=== PATIENT | male | born 1935 | race Caucasian/White ===

== ENCOUNTER 2016-11-27 22:55 | Emergency (ER) | payer MEDICARE, OTHER ==
[2016-11-27 23:48] LABS: CREATININE FOR GFR 1.36 MG/DL (0.70-1.30); GLOMERULAR FILTRATION RATE 53.7 (>35); POTASSIUM SERUM 3.9 MEQ/L (3.5-5.1)
--- NOTE | 2016-11-28 00:20 | REPUSA ---
CLINICAL HISTORY: Syncope. TECHNIQUE: Multiple axial brain CT scan sections were obtained from base to vertex without contrast a dministration. COMMENTS: Comparison study exam performed on 11/15/2013. Prominent dural falcine calcifications. The study shows normal configuration of sella turcica. There are no intra or extra-axial collections. There is no mass effect or midline shift. There is no evidence of hematoma formation. No hydrocephal us is present. No abnormal calcifications are noted. No significant abnormalities are seen either in the posterior fossa or supratentorial compartment. The sinuses and mastoid air cells are patent. IMPRESSION: No evidence of acute intracranial pathology. Thank you for your kind referral of this patient.
--- NOTE | 2016-11-28 02:41 | EDDOCDS ---
Physician Documentation [facility] Name: Jaylen Luis Age: 80 yrs Sex: Male : 1935 Arrival Date: 11/27/2016 Time: 22:55 Bed 19 Private MD: Gurwinder Pino Disposition: 11/28/16 01:43 Discharged to Home/Self Care. Impression: Somnolence, Dehydration. - Condition is Stable. - Medication Reconciliation, Local Pharmacy Hours form. - Follow up: Gurwinder Pino; When: Call to arrange an appointment; Reason: Recheck today's complaints. - Problem is new. - Symptoms have improved. Historical: - Allergies: No known drug Allergies; - Home Meds: 1. lisinopril 10 mg Oral tab once daily 2. acetaminophen-codeine 325-30 mg Oral cap (Last dose: 11/27/2016 06:00) - PMHx: Hypertension; - PSHx: Prostatectomy; Appendectomy; - Social history: Smoking status: Patient states former smoker of tobacco. No barriers to communication noted, The patient speaks fluent Danish, Speaks appropriately for age. - Family history: Not pertinent. - : The pt / caregiver states he / she is not on anticoagulants. Home medication list is obtained from the patient. - Exposure Risk Screening:: None identified. Vital Signs: 11/27 22:56 BP 165 / 91; Pulse 84; Resp 18 S; Temp 97.5(O); Pulse Ox 99% on R/A; Weight 81.65 kg / dd6 180.01 lbs (R); Height 5 ft. 8 in. (172.72 cm) (R); 23:04 BP 188 / 82 (auto/); jmb 23:06 Pulse 86 MON; Pulse Ox 97% ; jmb 23:19 BP 172 / 81 (auto/); jmb 23:19 Pulse 82 MON; Pulse Ox 97% ; jmb 23:34 BP 164 / 76 (auto/); jmb 23:34 Pulse 82 MON; jmb 23:49 BP 173 / 81 (auto/); jmb 23:49 Pulse 88 MON; Pulse Ox 82% ; jmb 11/28 00:04 BP 187 / 78 (auto/); jmb 00:04 Pulse 84 MON; Pulse Ox 96% ; jmb 00:19 BP 186 / 91 (auto/); jmb 00:19 Pulse 84 MON; Pulse Ox 97% ; jmb 00:34 BP 171 / 90 (auto/); jmb 00:34 Pulse 84 MON; Pulse Ox 95% ; jmb 00:49 BP 181 / 90 (auto/); jmb 00:49 Pulse 84 MON; Pulse Ox 92% ; jmb 01:04 BP 175 / 83 (auto/); jmb 01:04 Pulse 82 MON; Pulse Ox 89% ; jmb 01:19 BP 194 / 89 (auto/); jmb 01:19 Pulse 88 MON; Pulse Ox 98% ; jmb 01:35 BP 189 / 89 (auto/); jmb 01:36 Pulse 84 MON; Pulse Ox 96% ; jmb 01:49 BP 159 / 78 (auto/); jmb 01:49 Pulse 84 MON; Pulse Ox 98% ; jmb 02:04 BP 189 / 84 (auto/); jmb 02:04 Pulse 84 MON; Pulse Ox 98% ; jmb 02:37 BP 178 / 84; Pulse 86; Resp 18; Temp 97.4(O); Pulse Ox 98% on R/A; Pain 3/10; jmb 11/27 22:56 Body Mass Index 27.37 (81.65 kg, 172.72 cm) dd6 MDM: 11/27 23:10 CT Head Without Contrast Ordered. EDMS 23:10 ECG WITH READING ER PHYS+CARDIAG ordered. EDMS 23:32 MED Profile Ordered. EDMS 23:50 Financial registration complete. hs2 11/28 00:31 [facility] Payment Agreement was scanned into [employer] and attached to record. hs2 00:46 MED Profile Reviewed. cs11 00:46 CT Head Without Contrast Reviewed. cs11 01:29 NS 0.9% 500 ml IV at bolus once ordered. cs11 Administered Medications: 01:43 Drug: NS 0.9% 500 ml [sodium chloride 0.9 % intravenous solution] Route: IV; Rate: jmb bolus; Site: left antecubital; Signatures: Dispatcher [employer] EDMS Tavo Carlos RN RN cz Schiff, Craig, DO cs11 Fan Harrington RN RN jmb Stanton, Hillary, Reg Reg hs2 The chart was reviewed and I authenticate all verbal orders and agree with the evaluation and treatment provided.Attachments: 00:31 [facility] Payment Agreement hs2 MTDD
--- NOTE | 2016-11-28 02:41 | EDDOCDS ---
Nurse's Notes [facility] Name: Jaylen Luis Age: 80 yrs Sex: Male : 1935 Arrival Date: 11/27/2016 Time: 22:55 Bed 19 Private MD: Gurwinder Pino Diagnosis: Somnolence;Dehydration Presentation: 11/27 23:04 Presenting complaint: states: that around 2100 pt had fallen asleep in chair, cz woke pt up to go to bed and pt didn't know his and seemed confused. presently pt denies any new discomfort speech is normal per pt's smile is symmetrical moves tongue without difficulty forging die finisher are equal bilaterally and pt able to move legs and stand without difficulty. The last date and time the patient was known to be well was was at 21:00 on November 27, 2016. No acute neurological deficit is noted. Adult Sepsis Screening: The patient does not have new or worsening altered mentation. Patient's respiratory rate is less than 22. Systolic blood pressure is greater than 100. Patient has a qSOFA score of 0- Negative Sepsis Screen. Suicide/Homicide risk assessment- the patient denies having any suicidal and/or homicidal ideations and does not present with any other emotional, behavioral or mental health complaints. Status: Patient is not a oil well services dispatcher or dependent. Transition of care: patient was not received from another setting of care. 23:04 Acuity: ERIC Level 3 cz 23:04 Method Of Arrival: Walkin/Carried/Asstd cz 11/28 02:39 Pre-hospital glucose is not applicable to this patient. [facility] Triage Assessment: 11/27 23:08 The onset of the patients symptoms was less than three hours ago. General: Appears in cz no apparent distress. Neurological: No deficits noted. Level of Consciousness is awake, alert, Oriented to person, place, time, Fur Sorter are equal bilaterally Moves all extremities. Gait is steady, Speech is normal, Facial symmetry appears normal. 11/28 02:40 Neurological: Reports weakness. [facility] Historical: - Allergies: No known drug Allergies; - Home Meds: 1. lisinopril 10 mg Oral tab once daily 2. acetaminophen-codeine 325-30 mg Oral cap (Last dose: 11/27/2016 06:00) - PMHx: Hypertension; - PSHx: Prostatectomy; Appendectomy; - Social history: Smoking status: Patient states former smoker of tobacco. No barriers to communication noted, The patient speaks fluent [place], Speaks appropriately for age. - Family history: Not pertinent. - : The pt / caregiver states he / she is not on anticoagulants. Home medication list is obtained from the patient. - Exposure Risk Screening:: None identified. Screenin/15 23:17 Screening information is obtained from the patient, family members. Fall risk: At risk jmb due to age, delay in response for cerebellar function. Assistance ADL's: requires no assistance with activities of daily living. Abuse/DV Screen: The patient / caregiver reports he/she is: not in a situation that causes fear, pain or injury. Nutritional screening: No deficits noted. home support is adequate. 11/28 02:37 Advance Directives: Currently, there is no health care proxy. There is no active DNR jmb order. There is no living will. There is no Power of Analytical Laboratory Technician. Assessment: 11/27 23:17 General: Appears in no apparent distress, Behavior is appropriate for age. Pain: jmb Location: back Pain currently is 5 out of 10 on a pain scale. Neurological: Level of Consciousness is awake, alert, obeys commands, Oriented to person, place, time, Fur Sorter are equal bilaterally Speech is normal, Facial symmetry appears normal, Facial symmetry: tongue is midline, Pupils are PERRLA. Cardiovascular: Capillary refill < 3 seconds Heart tones S1 S2 present Pulses are all present. Rhythm is sinus rhythm No ectopy. Chest pain is denied. Respiratory: Airway is patent Respiratory effort is even, unlabored, Respiratory pattern is regular, symmetrical, Breath sounds are clear bilaterally. GI: Abdomen is non- distended Bowel sounds present X 4 quads. Abd is soft and non tender X 4 quads. Derm: Skin is pink, warm & dry. Musculoskeletal: Range of motion intact in all extremities. 11/28 00:00 General: Appears in no apparent distress, comfortable, Behavior is appropriate for age, jmb cooperative. Neurological: Level of Consciousness is awake, alert, obeys commands, Oriented to person, place, time. Respiratory: Airway is patent Respiratory effort is even, unlabored, Respiratory pattern is regular, symmetrical. 00:15 General: Patient stated that she was concerned with when patient CT would be read, jmb informed that usually takes an hour for reads. concerned, relayed concern to Dr. Montanez whom stated that until CT is read he can't hastily make a poor decision with care. . 00:33 General: Patient out to report that patient complaint of left arm pain. Patient jmb reports that pain feels like he fell asleep on it and its waking up. Patient has equal forging die finisher, skin turgor loose, nail beds pink, capillary refill less than 3 seconds. Bilateral pulses of upper extremities equal and bounding. Dr. Montanez made aware of 's concerns. keeps saying she is concerned that patient is gonna go outside window for CT scan testing. informed that physician is working on patient and results are quick. Patient has no gait disturbance or displaying any signs or symptoms of stroke like activity. Patient slow to response with admitted use of Tylenol with codeine earlier prior to arrival. . 01:07 General: Appears in no apparent distress, comfortable, Behavior is appropriate for age, jmb cooperative. Neurological: Level of Consciousness is awake, alert, obeys commands, Oriented to person, place, time. Respiratory: Airway is patent Respiratory effort is even, unlabored, Respiratory pattern is regular, symmetrical. 01:43 General: Appears in no apparent distress, comfortable, Behavior is appropriate for age, jmb cooperative. Neurological: Level of Consciousness is awake, alert, obeys commands, Oriented to person, place, time. Respiratory: Airway is patent Respiratory effort is even, unlabored, Respiratory pattern is regular, symmetrical. 02:17 General: Appears in no apparent distress, comfortable, Behavior is appropriate for age, jmb cooperative, Patient laying on stretcher, appears comfortable. Patient fluids infusing. . Neurological: Level of Consciousness is awake, alert, obeys commands, Oriented to person, place, time. Respiratory: Airway is patent Respiratory effort is even, unlabored, Respiratory pattern is regular, symmetrical. 02:37 General: Patient instructed on discharge instructions. Patient asked if there were any [facility] questions regarding discharge, patient stated no. IV discontinued per hospital policy. Patient signed discharge instructions. Patient discharged in stable condition. . Vital Signs: 11/27 22:56 BP 165 / 91; Pulse 84; Resp 18 S; Temp 97.5(O); Pulse Ox 99% on R/A; Weight 81.65 kg dd6 (R); Height 5 ft. 8 in. (172.72 cm) (R); 23:04 BP 188 / 82 (auto/); jmb 23:06 Pulse 86 MON; Pulse Ox 97% ; jmb 23:19 BP 172 / 81 (auto/); jmb 23:19 Pulse 82 MON; Pulse Ox 97% ; jmb 23:34 BP 164 / 76 (auto/); jmb 23:34 Pulse 82 MON; jmb 23:49 BP 173 / 81 (auto/); jmb 23:49 Pulse 88 MON; Pulse Ox 82% ; jmb 11/28 00:04 BP 187 / 78 (auto/); jmb 00:04 Pulse 84 MON; Pulse Ox 96% ; jmb 00:19 BP 186 / 91 (auto/); jmb 00:19 Pulse 84 MON; Pulse Ox 97% ; jmb 00:34 BP 171 / 90 (auto/); jmb 00:34 Pulse 84 MON; Pulse Ox 95% ; jmb 00:49 BP 181 / 90 (auto/); jmb 00:49 Pulse 84 MON; Pulse Ox 92% ; jmb 01:04 BP 175 / 83 (auto/); jmb 01:04 Pulse 82 MON; Pulse Ox 89% ; jmb 01:19 BP 194 / 89 (auto/); jmb 01:19 Pulse 88 MON; Pulse Ox 98% ; jmb 01:35 BP 189 / 89 (auto/); jmb 01:36 Pulse 84 MON; Pulse Ox 96% ; jmb 01:49 BP 159 / 78 (auto/); jmb 01:49 Pulse 84 MON; Pulse Ox 98% ; jmb 02:04 BP 189 / 84 (auto/); jmb 02:04 Pulse 84 MON; Pulse Ox 98% ; jmb 02:37 BP 178 / 84; Pulse 86; Resp 18; Temp 97.4(O); Pulse Ox 98% on R/A; Pain 3/10; jmb 11/27 22:56 Body Mass Index 27.37 (81.65 kg, 172.72 cm) dd6 Vitals: 11/27 22:56 Log In Time: November 27, 2016 at 22:54. RN notified that patient meets Red Flag dd6 criteria. 11/28 02:39 Glucose Measurement D-stick deferred by provider. [facility] ED Course: 11/27 22:56 Patient visited by Xiang Lechuga PCA. dd6 22:56 Gurwinder Pino is Private Physician. dd6 22:56 Patient moved to Waiting dd6 23:03 Will Montanez DO is Attending Physician. cs11 23:03 Patient visited by Will Montanez DO. cs11 23:03 Patient moved to 19 cz 23:05 Patient visited by Annia Razo PCA. buster 23:05 Pt greeted and oriented to ED. Patient advised of names of staff involved in care, buster location of call queen, wait times and NPO status. Patient has correct armband on for positive identification. Placed in gown. Bed in low position. Call light in reach. Side rails up X2. spa director on. Pulse ox on. NIBP on. 23:07 Triage Initiated cz 23:14 Patient visited by Annia Razo PCA. buster 23:14 EKG done. (by ED staff). Reviewed by Will Montanez DO. buster 23:17 The patient / caregiver is instructed regarding the plan of care and ED course. randal 23:17 Inserted saline lock: 20 gauge in left antecubital area and blood collected. The randal patient tolerated the procedure well. Labs drawn. (by ED staff). Sent per order to lab. 23:20 Patient visited by Fan Harrington RN. jmiggy 11/28 00:00 Patient visited by Fan Harrington RN. jmiggy 00:18 Patient visited by Fan Harrington RN. jmb 00:26 CT Head Without Contrast Returned. EDMS 00:31 [facility] Payment Agreement was scanned into [employer] and attached to record. hs2 00:36 Patient visited by Fan Harrington RN. jmb 01:08 Patient visited by Fan Harrington RN. jmb 01:42 Gurwinder Pino is Referral Physician. cs11 01:43 Patient visited by Fan Harrington RN. jmb 02:18 Patient visited by Fan Harrington RN. jmb 02:37 Discontinued lock intact, bleeding controlled, pressure dressing applied, No randal redness/swelling at site. No procedures done that require assistance. Administered Medications: 01:43 Drug: NS 0.9% 500 ml [sodium chloride 0.9 % intravenous solution] Route: IV; Rate: jmb bolus; Site: left antecubital; Order Results: Lab Order: LUCIE PALMA 11/27/16 23:10 Test: GLUCOSE, FASTING; Value: 92; Range: 83-110; Units: MG/DL; Status: F Test: BLOOD UREA NITROGEN; Value: 26; Range: 7-18; Abnormal: Above high normal; Units: MG/DL; Status: F Test: CREATININE FOR GFR; Value: 1.36; Range: 0.70-1.30; Abnormal: Above high normal; Units: MG/DL; Status: F Test: GLOMERULAR FILTRATION RATE; Value: 53.7; Range: >35; Status: F Test: SODIUM LEVEL; Value: 143; Range: 136-145; Units: MEQ/L; Status: F Test: POTASSIUM SERUM; Value: 3.9; Range: 3.5-5.1; Units: MEQ/L; Status: F Test: CHLORIDE LEVEL; Value: 103; Range: 98-107; Units: MEQ/L; Status: F Test: CARBON DIOXIDE LEVEL; Value: 34; Range: 21-32; Abnormal: Above high normal; Units: MEQ/L; Status: F Test: ANION GAP; Value: 6; Range: 8-16; Abnormal: Below low normal; Units: MEQ/L; Status: F Test: CALCIUM LEVEL; Value: 9.0; Range: 8.8-10.2; Units: MG/DL; Status: F Test Note: ; Units are mL/min/1.73 m2 Chronic Kidney Disease Staging per NKF: Stage I & II GFR >=60 Normal to Mildly Decreased Stage III GFR 30-59 Moderately Decreased Stage IV GFR 15-29 Severely Decreased Stage V GFR <15 Very Little GFR Left ESRD GFR <15 on MOBILE UI DEVELOPER Radiology Order: CT Head Without Contrast Test: CT Head Without Contrast REASON FOR EXAMINATION: Syncope; ; CLINICAL HISTORY: Syncope.; TECHNIQUE: Multiple axial brain CT scan sections were obtained from base to vertex without contrast a; dministration.; COMMENTS:; Comparison study exam performed on 11/15/2013.; Prominent dural falcine calcifications.; The study shows normal configuration of sella turcica. There are no intra or extra-axial collections.; There is no mass effect or midline shift. There is no evidence of hematoma formation. No hydrocephal; us is present. No abnormal calcifications are noted.; No significant abnormalities are seen either in the posterior fossa or supratentorial compartment.; The sinuses and mastoid air cells are patent.; IMPRESSION:; No evidence of acute intracranial pathology.; Thank you for your kind referral of this patient.; ; Outcome: 01:43 Discharge ordered by Provider. cs11 02:37 Discharge Assessment: Patient awake, alert and oriented x 3. No cognitive and/or jmb functional deficits noted. Patient verbalized understanding of disposition instructions. Patient awake and alert. obeys commands, Oriented to person, place and time. Patient verbalized understanding of disposition instructions. Patient has no functional deficits. patient administered narcotics - no. The following High Risk Discharge criteria are identified: None. Discharged to home ambulatory, with significant other. Condition: stable. Discharge instructions given to patient, Instructed on discharge instructions, follow up and referral plans. Demonstrated understanding of instructions, Pt was receptive of discharge instructions/ teaching. CT Study completed. Property sent home with patient. 02:40 Patient left the ED. randal Signatures: Dispatcher [employer] EDMS Tavo Carlos, RN Xiang Frankel, SUPERVISOR FLOOR ASSEMBLY SUPERVISOR FLOOR ASSEMBLY dd6 Annia Razo, SUPERVISOR FLOOR ASSEMBLY SUPERVISOR FLOOR ASSEMBLY Will Perez, DO cs11 Fan Harrington,Isela Yates RN, Reg Reg hs2 MTDD
--- NOTE | 2016-11-28 12:59 | ECGEPIP ---
Stationary ECG Study [facility] - ED Test Date: 2016-11-27 Pat Name: GIN SPRAGUE Department: Room: - Gender: M Creative Services Writer: denise : 1935 Requested By: TRINA LEGER Order Number: [id number] Reading MD: Adriana Storm Measurements Intervals [place] Rate: 82 P: 65 HI: 211 QRS: -37 QRSD: 99 T: 80 QT: 364 QTc: 426 Interpretive Statements SINUS RHYTHM WITH FIRST DEGREE AV BLOCK POSSIBLE LEFT ATRIAL ENLARGEMENT MARKED LEFT AXIS DEVIATION POSSIBLE LEFT VENTRICULAR HYPERTROPHY NONSPECIFIC T-WAVE ABNORMALITY NO PRIOR FOR COMPARISON Electronically Signed On 11-28-2016 12:58:38 EST by Adriana Storm
--- NOTE | 2016-11-30 03:41 | EDDOCDS ---
Physician Documentation [facility] Name: Jaylen Luis Age: 80 yrs Sex: Male : 1935 Arrival Date: 11/27/2016 Time: 22:55 Bed 19 Private MD: Gurwinder Pino Disposition: 11/28/16 01:43 Discharged to Home/Self Care. Impression: Somnolence, Dehydration. - Condition is Stable. - Medication Reconciliation, Local Pharmacy Hours form. - Follow up: Gurwinder Pino; When: Call to arrange an appointment; Reason: Recheck today's complaints. - Problem is new. - Symptoms have improved. Historical: - Allergies: No known drug Allergies; - Home Meds: 1. lisinopril 10 mg Oral tab once daily 2. acetaminophen-codeine 325-30 mg Oral cap (Last dose: 11/27/2016 06:00) - PMHx: Hypertension; - PSHx: Prostatectomy; Appendectomy; - Social history: Smoking status: Patient states former smoker of tobacco. No barriers to communication noted, The patient speaks fluent Tajik, Speaks appropriately for age. - Family history: Not pertinent. - : The pt / caregiver states he / she is not on anticoagulants. Home medication list is obtained from the patient. - Exposure Risk Screening:: None identified. Vital Signs: 11/27 22:56 BP 165 / 91; Pulse 84; Resp 18 S; Temp 97.5(O); Pulse Ox 99% on R/A; Weight 81.65 kg / dd6 180.01 lbs (R); Height 5 ft. 8 in. (172.72 cm) (R); 23:04 BP 188 / 82 (auto/); jmb 23:06 Pulse 86 MON; Pulse Ox 97% ; jmb 23:19 BP 172 / 81 (auto/); jmb 23:19 Pulse 82 MON; Pulse Ox 97% ; jmb 23:34 BP 164 / 76 (auto/); jmb 23:34 Pulse 82 MON; jmb 23:49 BP 173 / 81 (auto/); jmb 23:49 Pulse 88 MON; Pulse Ox 82% ; jmb 11/28 00:04 BP 187 / 78 (auto/); jmb 00:04 Pulse 84 MON; Pulse Ox 96% ; jmb 00:19 BP 186 / 91 (auto/); jmb 00:19 Pulse 84 MON; Pulse Ox 97% ; jmb 00:34 BP 171 / 90 (auto/); jmb 00:34 Pulse 84 MON; Pulse Ox 95% ; jmb 00:49 BP 181 / 90 (auto/); jmb 00:49 Pulse 84 MON; Pulse Ox 92% ; jmb 01:04 BP 175 / 83 (auto/); jmb 01:04 Pulse 82 MON; Pulse Ox 89% ; jmb 01:19 BP 194 / 89 (auto/); jmb 01:19 Pulse 88 MON; Pulse Ox 98% ; jmb 01:35 BP 189 / 89 (auto/); jmb 01:36 Pulse 84 MON; Pulse Ox 96% ; jmb 01:49 BP 159 / 78 (auto/); jmb 01:49 Pulse 84 MON; Pulse Ox 98% ; jmb 02:04 BP 189 / 84 (auto/); jmb 02:04 Pulse 84 MON; Pulse Ox 98% ; jmb 02:37 BP 178 / 84; Pulse 86; Resp 18; Temp 97.4(O); Pulse Ox 98% on R/A; Pain 3/10; jmb 11/27 22:56 Body Mass Index 27.37 (81.65 kg, 172.72 cm) dd6 MDM: 11/27 23:10 CT Head Without Contrast Ordered. EDMS 23:10 ECG WITH READING ER PHYS+CARDIAG ordered. EDMS 23:32 MED Profile Ordered. EDMS 23:50 Financial registration complete. hs2 11/28 00:31 [facility] Payment Agreement was scanned into [employer] and attached to record. hs2 00:46 MED Profile Reviewed. cs11 00:46 CT Head Without Contrast Reviewed. cs11 01:29 NS 0.9% 500 ml IV at bolus once ordered. cs11 11:01 T-Sheet-- Draft Copy was scanned into [employer] and attached to record. gb 11:01 ECG/EKG was scanned into [employer] and attached to record. gb 11:01 Radiology Report was scanned into [employer] and attached to record. gb Administered Medications: 01:43 Drug: NS 0.9% 500 ml [sodium chloride 0.9 % intravenous solution] Route: IV; Rate: jmb bolus; Site: left antecubital; Signatures: Dispatcher [employer] EDMS cher, Tavo, ALEJANDRA RN cz Payal López, Reg Reg gb Will Montanez, DO cs11 Fan Harrington RN RN jmb Stanton, Hillary, Reg Reg hs2 The chart was reviewed and I authenticate all verbal orders and agree with the evaluation and treatment provided.Attachments: 00:31 [facility] Payment Agreement hs2 11:01 T-Sheet-- Draft Copy gb 11: ECG/EKG gb Chart Complete MTDD
--- NOTE | 2016-11-30 03:41 | EDDOCDS ---
Nurse's Notes [facility] Name: Jaylen Luis Age: 80 yrs Sex: Male : 1935 Arrival Date: 11/27/2016 Time: 22:55 Bed 19 Private MD: Gurwinder Pino Diagnosis: Somnolence;Dehydration Presentation: 11/27 23:04 Presenting complaint: states: that around 2100 pt had fallen asleep in chair, cz woke pt up to go to bed and pt didn't know his and seemed confused. 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 The last date and time the patient was known to be well was was at 21:00 on November 27, 2016. No acute neurological deficit is noted. Adult Sepsis Screening: The patient does not have new or worsening altered mentation. Patient's respiratory rate is less than 22. Systolic blood pressure is greater than 100. Patient has a qSOFA score of 0- Negative Sepsis Screen. Suicide/Homicide risk assessment- the patient denies having any suicidal and/or homicidal ideations and does not present with any other emotional, behavioral or mental health complaints. 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 Transition of care: patient was not received from another setting of care. 23:04 Acuity: ERIC Level 3 cz 23:04 Method Of Arrival: Walkin/Carried/Asstd cz 11/28 02:39 Pre-hospital glucose is not applicable to this patient. cox branson Triage Assessment: 11/27 23:08 The onset of the patients symptoms was less than three hours ago. General: Appears in cz no apparent distress. Neurological: No deficits noted. Level of Consciousness is awake, alert, Oriented to person, place, time, Core Piler are equal bilaterally Moves all extremities. Gait is steady, Speech is normal, Facial symmetry appears normal. 11/28 02:40 Neurological: Reports weakness. cox branson Historical: - Allergies: No known drug Allergies; - Home Meds: 1. lisinopril 10 mg Oral tab once daily 2. acetaminophen-codeine 325-30 mg Oral cap (Last dose: 11/27/2016 06:00) - PMHx: Hypertension; - PSHx: Prostatectomy; Appendectomy; - Social history: Smoking status: Patient states former smoker of tobacco. No barriers to communication noted, The patient speaks fluent Upper Sorbian, Speaks appropriately for age. - Family history: Not pertinent. - : The pt / caregiver states he / she is not on anticoagulants. Home medication list is obtained from the patient. - Exposure Risk Screening:: None identified. Screenin/15 23:17 Screening information is obtained from the patient, family members. Fall risk: At risk jmb due to age, delay in response for cerebellar function. Assistance ADL's: requires no assistance with activities of daily living. Abuse/DV Screen: The patient / caregiver reports he/she is: not in a situation that causes fear, pain or injury. Nutritional screening: No deficits noted. home support is adequate. 11/28 02:37 Advance Directives: Currently, there is no health care proxy. There is no active DNR jmb order. There is no living will. There is no Power of Air Value Tester. Assessment: 11/27 23:17 General: Appears in no apparent distress, Behavior is appropriate for age. Pain: jmb Location: back Pain currently is 5 out of 10 on a pain scale. Neurological: Level of Consciousness is awake, alert, obeys commands, Oriented to person, place, time, Core Piler are equal bilaterally Speech is normal, Facial symmetry appears normal, Facial symmetry: tongue is midline, Pupils are PERRLA. Cardiovascular: Capillary refill < 3 seconds Heart tones S1 S2 present Pulses are all present. Rhythm is sinus rhythm No ectopy. Chest pain is denied. Respiratory: Airway is patent Respiratory effort is even, unlabored, Respiratory pattern is regular, symmetrical, Breath sounds are clear bilaterally. GI: Abdomen is non- distended Bowel sounds present X 4 quads. Abd is soft and non tender X 4 quads. Derm: Skin is pink, warm & dry. Musculoskeletal: Range of motion intact in all extremities. 11/28 00:00 General: Appears in no apparent distress, comfortable, Behavior is appropriate for age, jmb cooperative. Neurological: Level of Consciousness is awake, alert, obeys commands, Oriented to person, place, time. Respiratory: Airway is patent Respiratory effort is even, unlabored, Respiratory pattern is regular, symmetrical. 00:15 General: Patient stated that she was concerned with when patient CT would be read, jmb informed that usually takes an hour for reads. concerned, relayed concern to Dr. Leger whom stated that until CT is read he can't hastily make a poor decision with care. . 00:33 General: Patient out to report that patient complaint of left arm pain. Patient jmb reports that pain feels like he fell asleep on it and its waking up. Patient has equal prototype machine operator, skin turgor loose, nail beds pink, capillary refill less than 3 seconds. Bilateral pulses of upper extremities equal and bounding. Dr. Leger made aware of 's concerns. keeps saying she is concerned that patient is gonna go outside window for CT scan testing. informed that physician is working on patient and results are quick. Patient has no gait disturbance or displaying any signs or symptoms of stroke like activity. Patient slow to response with admitted use of Tylenol with codeine earlier prior to arrival. . 01:07 General: Appears in no apparent distress, comfortable, Behavior is appropriate for age, jmb cooperative. Neurological: Level of Consciousness is awake, alert, obeys commands, Oriented to person, place, time. Respiratory: Airway is patent Respiratory effort is even, unlabored, Respiratory pattern is regular, symmetrical. 01:43 General: Appears in no apparent distress, comfortable, Behavior is appropriate for age, jmb cooperative. Neurological: Level of Consciousness is awake, alert, obeys commands, Oriented to person, place, time. Respiratory: Airway is patent Respiratory effort is even, unlabored, Respiratory pattern is regular, symmetrical. 02:17 General: Appears in no apparent distress, comfortable, Behavior is appropriate for age, jmb cooperative, Patient laying on stretcher, appears comfortable. Patient fluids infusing. . Neurological: Level of Consciousness is awake, alert, obeys commands, Oriented to person, place, time. Respiratory: Airway is patent Respiratory effort is even, unlabored, Respiratory pattern is regular, symmetrical. 02:37 General: Patient instructed on discharge instructions. Patient asked if there were any cox branson questions regarding discharge, patient stated no. IV discontinued per hospital policy. Patient signed discharge instructions. Patient discharged in stable condition. . Vital Signs: 11/27 22:56 BP 165 / 91; Pulse 84; Resp 18 S; Temp 97.5(O); Pulse Ox 99% on R/A; Weight 81.65 kg dd6 (R); Height 5 ft. 8 in. (172.72 cm) (R); 23:04 BP 188 / 82 (auto/); jmb 23:06 Pulse 86 MON; Pulse Ox 97% ; jmb 23:19 BP 172 / 81 (auto/); jmb 23:19 Pulse 82 MON; Pulse Ox 97% ; jmb 23:34 BP 164 / 76 (auto/); jmb 23:34 Pulse 82 MON; jmb 23:49 BP 173 / 81 (auto/); jmb 23:49 Pulse 88 MON; Pulse Ox 82% ; jmb 11/28 00:04 BP 187 / 78 (auto/); jmb 00:04 Pulse 84 MON; Pulse Ox 96% ; jmb 00:19 BP 186 / 91 (auto/); jmb 00:19 Pulse 84 MON; Pulse Ox 97% ; jmb 00:34 BP 171 / 90 (auto/); jmb 00:34 Pulse 84 MON; Pulse Ox 95% ; jmb 00:49 BP 181 / 90 (auto/); jmb 00:49 Pulse 84 MON; Pulse Ox 92% ; jmb 01:04 BP 175 / 83 (auto/); jmb 01:04 Pulse 82 MON; Pulse Ox 89% ; jmb 01:19 BP 194 / 89 (auto/); jmb 01:19 Pulse 88 MON; Pulse Ox 98% ; jmb 01:35 BP 189 / 89 (auto/); jmb 01:36 Pulse 84 MON; Pulse Ox 96% ; jmb 01:49 BP 159 / 78 (auto/); jmb 01:49 Pulse 84 MON; Pulse Ox 98% ; jmb 02:04 BP 189 / 84 (auto/); jmb 02:04 Pulse 84 MON; Pulse Ox 98% ; jmb 02:37 BP 178 / 84; Pulse 86; Resp 18; Temp 97.4(O); Pulse Ox 98% on R/A; Pain 3/10; jmb 11/27 22:56 Body Mass Index 27.37 (81.65 kg, 172.72 cm) dd6 Vitals: 11/27 22:56 Log In Time: November 27, 2016 at 22:54. RN notified that patient meets Red Flag dd6 criteria. 11/28 02:39 Glucose Measurement D-stick deferred by provider. [facility]x [facility] ED Course: 11/27 22:56 Patient visited by Xiang Lechuga PCA. dd6 22:56 Gurwinder Pino is Private Physician. dd6 22:56 Patient moved to Waiting dd6 23:03 Trina Leger DO is Attending Physician. cs11 23:03 Patient visited by Trina Leger DO. cs11 23:03 Patient moved to 19 cz 23:05 Patient visited by Annia Razo PCA. buster 23:05 Pt greeted and oriented to ED. Patient advised of names of staff involved in care, buster location of call queen, wait times and NPO status. Patient has correct armband on for positive identification. Placed in gown. Bed in low position. Call light in reach. Side rails up X2. resident buyer on. Pulse ox on. NIBP on. 23:07 Triage Initiated cz 23:14 Patient visited by Annia Razo PCA. buster 23:14 EKG done. (by ED staff). Reviewed by Trina Leger DO. buster 23:17 The patient / caregiver is instructed regarding the plan of care and ED course. randal 23:17 Inserted saline lock: 20 gauge in left antecubital area and blood collected. The randal patient tolerated the procedure well. Labs drawn. (by ED staff). Sent per order to lab. 23:20 Patient visited by Fan Harrington RN. jmiggy 11/28 00:00 Patient visited by Fan Harrington RN. jmb 00:18 Patient visited by Fan Harrington RN. jmb 00:26 CT Head Without Contrast Returned. EDMS 00:31 [facility] Payment Agreement was scanned into [employer] and attached to record. hs2 00:36 Patient visited by Fan Harrington RN. jmb 01:08 Patient visited by Fan Harrington RN. jmb 01:42 Gurwinder Pino is Referral Physician. cs11 01:43 Patient visited by Fan Harrington RN. jmb 02:18 Patient visited by Fan Harrington RN. jmb 02:37 Discontinued lock intact, bleeding controlled, pressure dressing applied, No randal redness/swelling at site. No procedures done that require assistance. 11:01 T-Sheet-- Draft Copy was scanned into [employer] and attached to record. gb 11:01 ECG/EKG was scanned into [employer] and attached to record. gb 11:01 Radiology Report was scanned into [employer] and attached to record. gb 13:09 EKG-ADULT Returned. EDMS Administered Medications: 01:43 Drug: NS 0.9% 500 ml [sodium chloride 0.9 % intravenous solution] Route: IV; Rate: jmb bolus; Site: left antecubital; Order Results: Lab Order: [employer]; KATINA'M 11/27/16 23:10 Test: GLUCOSE, FASTING; Value: 92; Range: 83-110; Units: MG/DL; Status: F Test: BLOOD UREA NITROGEN; Value: 26; Range: 7-18; Abnormal: Above high normal; Units: MG/DL; Status: F Test: CREATININE FOR GFR; Value: 1.36; Range: 0.70-1.30; Abnormal: Above high normal; Units: MG/DL; Status: F Test: GLOMERULAR FILTRATION RATE; Value: 53.7; Range: >35; Status: F Test: SODIUM LEVEL; Value: 143; Range: 136-145; Units: MEQ/L; Status: F Test: POTASSIUM SERUM; Value: 3.9; Range: 3.5-5.1; Units: MEQ/L; Status: F Test: CHLORIDE LEVEL; Value: 103; Range: 98-107; Units: MEQ/L; Status: F Test: CARBON DIOXIDE LEVEL; Value: 34; Range: 21-32; Abnormal: Above high normal; Units: MEQ/L; Status: F Test: ANION GAP; Value: 6; Range: 8-16; Abnormal: Below low normal; Units: MEQ/L; Status: F Test: CALCIUM LEVEL; Value: 9.0; Range: 8.8-10.2; Units: MG/DL; Status: F Test Note: ; Units are mL/min/1.73 m2 Chronic Kidney Disease Staging per NKF: Stage I & II GFR >=60 Normal to Mildly Decreased Stage III GFR 30-59 Moderately Decreased Stage IV GFR 15-29 Severely Decreased Stage V GFR <15 Very Little GFR Left ESRD GFR <15 on VESSEL SCRAPPER Radiology Order: CT Head Without Contrast Test: CT Head Without Contrast REASON FOR EXAMINATION: Syncope; ; CLINICAL HISTORY: Syncope.; TECHNIQUE: Multiple axial brain CT scan sections were obtained from base to vertex without contrast a; dministration.; COMMENTS:; Comparison study exam performed on 11/15/2013.; Prominent dural falcine calcifications.; The study shows normal configuration of sella turcica. There are no intra or extra-axial collections.; There is no mass effect or midline shift. There is no evidence of hematoma formation. No hydrocephal; us is present. 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 cs 02:37 Discharge Assessment: Patient awake, alert and oriented x 3. No cognitive and/or jmb functional deficits noted. Patient verbalized understanding of disposition instructions. Patient awake and alert. obeys commands, Oriented to person, place and time. Patient verbalized understanding of disposition instructions. Patient has no functional deficits. patient administered narcotics - no. The following High Risk Discharge criteria are identified: None. Discharged to home ambulatory, with significant other. Condition: stable. Discharge instructions given to patient, Instructed on discharge instructions, follow up and referral plans. Demonstrated understanding of instructions, Pt was receptive of discharge instructions/ teaching. CT Study completed. Property sent home with patient. 02:40 Patient left the ED. randal Signatures: Dispatcher [employer] EDTavo Manriquez, Payal Connelly RN, Reg Reg gb Xiang Lechuga, METAL DIE FINISHER METAL DIE FINISHER dd6 Efrain Razoy, METAL DIE FINISHER METAL DIE FINISHER buster Trina Leger, DO DO cs11 Fan Harrington RN RN jmb Stanton, Hillary, Reg Reg hs2 Chart Complete MTDD
--- NOTE | 2016-11-30 03:41 | EDDOCDS ---
Physician Documentation [facility] Name: Jaylen Luis Age: 80 yrs Sex: Male : 1935 Arrival Date: 11/27/2016 Time: 22:55 Bed 19 Private MD: Gurwinder Pino Disposition: 11/28/16 01:43 Discharged to Home/Self Care. Impression: Somnolence, Dehydration. - Condition is Stable. - Medication Reconciliation, Local Pharmacy Hours form. - Follow up: Gurwinder Pino; When: Call to arrange an appointment; Reason: Recheck today's complaints. - Problem is new. - Symptoms have improved. Historical: - Allergies: No known drug Allergies; - Home Meds: 1. lisinopril 10 mg Oral tab once daily 2. acetaminophen-codeine 325-30 mg Oral cap (Last dose: 11/27/2016 06:00) - PMHx: Hypertension; - PSHx: Prostatectomy; Appendectomy; - Social history: Smoking status: Patient states former smoker of tobacco. No barriers to communication noted, The patient speaks fluent Kiswahili, Speaks appropriately for age. - Family history: Not pertinent. - : The pt / caregiver states he / she is not on anticoagulants. Home medication list is obtained from the patient. - Exposure Risk Screening:: None identified. Vital Signs: 11/27 22:56 BP 165 / 91; Pulse 84; Resp 18 S; Temp 97.5(O); Pulse Ox 99% on R/A; Weight 81.65 kg / dd6 180.01 lbs (R); Height 5 ft. 8 in. (172.72 cm) (R); 23:04 BP 188 / 82 (auto/); jmb 23:06 Pulse 86 MON; Pulse Ox 97% ; jmb 23:19 BP 172 / 81 (auto/); jmb 23:19 Pulse 82 MON; Pulse Ox 97% ; jmb 23:34 BP 164 / 76 (auto/); jmb 23:34 Pulse 82 MON; jmb 23:49 BP 173 / 81 (auto/); jmb 23:49 Pulse 88 MON; Pulse Ox 82% ; jmb 11/28 00:04 BP 187 / 78 (auto/); jmb 00:04 Pulse 84 MON; Pulse Ox 96% ; jmb 00:19 BP 186 / 91 (auto/); jmb 00:19 Pulse 84 MON; Pulse Ox 97% ; jmb 00:34 BP 171 / 90 (auto/); jmb 00:34 Pulse 84 MON; Pulse Ox 95% ; jmb 00:49 BP 181 / 90 (auto/); jmb 00:49 Pulse 84 MON; Pulse Ox 92% ; jmb 01:04 BP 175 / 83 (auto/); jmb 01:04 Pulse 82 MON; Pulse Ox 89% ; jmb 01:19 BP 194 / 89 (auto/); jmb 01:19 Pulse 88 MON; Pulse Ox 98% ; jmb 01:35 BP 189 / 89 (auto/); jmb 01:36 Pulse 84 MON; Pulse Ox 96% ; jmb 01:49 BP 159 / 78 (auto/); jmb 01:49 Pulse 84 MON; Pulse Ox 98% ; jmb 02:04 BP 189 / 84 (auto/); jmb 02:04 Pulse 84 MON; Pulse Ox 98% ; jmb 02:37 BP 178 / 84; Pulse 86; Resp 18; Temp 97.4(O); Pulse Ox 98% on R/A; Pain 3/10; jmb 11/27 22:56 Body Mass Index 27.37 (81.65 kg, 172.72 cm) dd6 MDM: 11/27 23:10 CT Head Without Contrast Ordered. EDMS 23:10 ECG WITH READING ER PHYS+CARDIAG ordered. EDMS 23:32 MED Profile Ordered. EDMS 23:50 Financial registration complete. hs2 11/28 00:31 [facility] Payment Agreement was scanned into [employer] and attached to record. hs2 00:46 MED Profile Reviewed. cs11 00:46 CT Head Without Contrast Reviewed. cs11 01:29 NS 0.9% 500 ml IV at bolus once ordered. cs11 11:01 T-Sheet-- Draft Copy was scanned into [employer] and attached to record. gb 11:01 ECG/EKG was scanned into [employer] and attached to record. gb 11:01 Radiology Report was scanned into [employer] and attached to record. gb Administered Medications: 01:43 Drug: NS 0.9% 500 ml [sodium chloride 0.9 % intravenous solution] Route: IV; Rate: jmb bolus; Site: left antecubital; Signatures: Dispatcher [employer] EDMS cher, Tavo, ALEJANDRA RN cz Payal López, Reg Reg gb Will Montanez, DO cs11 Fan Harrington RN RN jmb Stanton, Hillary, Reg Reg hs2 The chart was reviewed and I authenticate all verbal orders and agree with the evaluation and treatment provided.Attachments: 00:31 [facility] Payment Agreement hs2 11:01 T-Sheet-- Draft Copy gb 11: ECG/EKG gb Chart Complete MTDD
== END 2016-11-28 02:40 | disposition home or self-care (01) ==
LOC: M ED 22:55
DX: R40.0 Somnolence (principal); E86.0 Dehydration; I10 Essential (primary) hypertension; Z87.891 Personal history of nicotine dependence; Z79.899 Other long term (current) drug therapy

== ENCOUNTER → 2016-12-12 | Outpatient (REF) | payer MEDICARE, OTHER ==
[2016-12-12 11:26] LABS: ALBUMIN 4.1 GM/DL (3.2-5.2); ALBUMIN/GLOBULIN RATIO 1.58 (1.00-1.93); ALKALINE PHOSPHATASE 63 U/L (45-117); ALT/SGPT 22 U/L (12-78); ANION GAP 8 MEQ/L (8-16); AST/SGOT 14 U/L (15-37); BILIRUBIN,TOTAL 0.6 MG/DL (0.2-1.0); BLOOD UREA NITROGEN 26 MG/DL (7-18); CALCIUM LEVEL 8.7 MG/DL (8.8-10.2); CARBON DIOXIDE LEVEL 31 MEQ/L (21-32); CHLORIDE LEVEL 104 MEQ/L (98-107); CHOLESTEROL LEVEL 172 MG/DL (<200); CREATININE FOR GFR 1.21 MG/DL (0.70-1.30); GLOMERULAR FILTRATION RATE > 60.0 (>35); GLUCOSE, FASTING 105 MG/DL (83-110); POTASSIUM SERUM 4.1 MEQ/L (3.5-5.1); SODIUM LEVEL 143 MEQ/L (136-145); TOTAL PROTEIN 6.7 GM/DL (6.4-8.2); TRIGLYCERIDES LEVEL 69 MG/DL (<150)
== END ==
LOC: M SFHCPLAZ 08:06
PROVIDERS: ATTEND Internal Medicine
DX: I10 Essential (primary) hypertension (principal); R73.01 Impaired fasting glucose; E78.00 Pure hypercholesterolemia, unspecified

== ENCOUNTER 2017-04-17 06:23 | Emergency (ER) | payer MEDICARE, OTHER ==
[~2017-04-17] VITALS: Ht 172.7 cm; Wt 81.6 kg
[2017-04-17] MEDS ORDERED: ASPI81TA85 PO (06:34)
[2017-04-17] MEDS ORDERED: LISI10TA2 PO (06:34)
--- NOTE | 2017-04-17 08:01 | REP ---
Clinical: Pain . Technique: Patel scale and color Doppler evaluation using linear high frequency transducer. Findings: Ultrasound examination of the right lower extremity deep venous structures from the common femoral vein to the popliteal vein demonstrates normal compressibility flow and wave patterns in response to respiration and augmentation. There is no evidence for deep venous thrombosis. 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 Complex Esparza's cyst in the popliteal fossa measures 4.6 x 3.4 x 1.3 cm. Impression: No evidence for deep venous thrombosis. Esparza's cyst in the popliteal fossa. Signed by Joselito Herrera MD 04/17/2017 07:53 A
[2017-04-17 08:35] VITALS: BP 131/76
== END 2017-04-17 08:37 | disposition home or self-care (01) ==
LOC: M ED 07:47
DX: M79.604 Pain in right leg (principal); M71.21 Synovial cyst of popliteal space [Baker], right knee; Z79.82 Long term (current) use of aspirin; I10 Essential (primary) hypertension

== ENCOUNTER 2017-06-16 14:54 | Emergency (ER) | payer MEDICARE, OTHER ==
[~2017-06-16] VITALS: Ht 175.3 cm; Wt 80.4 kg
[~2017-06-16 14:54] MED LIST: ASPI81TA85 PO; LISI10TA2 PO
[2017-06-16 14:55] VITALS: BP 142/68
[2017-06-16] MEDS ORDERED: CENTTAB PO (15:22)
[2017-06-16] MEDS ORDERED: VITA100067 PO (15:22)
[2017-06-16] MEDS ORDERED: ACET30TAB PO (16:23)
--- NOTE | 2017-06-16 16:26 | REP ---
LEFT LOWER EXTREMITY DOPPLER VENOUS ULTRASOUND: 06/16/2017. Clinical history: Rule out DVT. Comparison: None. Technique: The deep venous system of the left lower extremity is evaluated with carrillo scale imaging, compression ultrasound, color imaging and duplex Doppler interrogation. Examination from the groin through the popliteal fossa into the proximal calf. Findings: There is full compressibility from the common femoral vein in the inguinal region through the popliteal vein. Color imaging confirms patency throughout the course of the deep venous system. There is respiratory variation and augmented flow at all levels. 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 This is a benign anatomic variation. Impression: 1. No Doppler venous ultrasound evidence of DVT in the left lower extremity. Signed by Wally Manrique MD 06/16/2017 10:24 P
== END 2017-06-16 16:55 | disposition home or self-care (01) ==
LOC: M ED 14:54
DX: M25.562 Pain in left knee (principal); M79.605 Pain in left leg; I10 Essential (primary) hypertension; Z90.79 Acquired absence of other genital organ(s); Z90.89 Acquired absence of other organs; Z79.82 Long term (current) use of aspirin; Z79.899 Other long term (current) drug therapy
CPT/HCPCS: 93971; 99281; G0463

== ENCOUNTER → 2017-08-14 | Outpatient (REF) | payer MEDICARE, OTHER ==
[~2017-08-14] MED LIST changes: +ACET30TAB PO; +CENTTAB PO; +VITA100067 PO
[2017-08-14 12:16] LABS: MEAN CORPUSCULAR HEMOGLOBIN 30.6 pg (27.0-33.0); MEAN CORPUSCULAR HGB CONC 32.2 g/dl (32.0-36.5); MEAN CORPUSCULAR VOLUME 95.2 fl (80.0-96.0); RED CELL DISTRIBUTION WIDTH 12.6 % (11.5-14.5); WHITE BLOOD COUNT 6.8 10^3/uL (4.0-10.0)
[2017-08-14 12:46] LABS: ALBUMIN 3.9 GM/DL (3.2-5.2); ALBUMIN/GLOBULIN RATIO 1.44 (1.00-1.93); ALKALINE PHOSPHATASE 58 U/L (45-117); ALT/SGPT 18 U/L (12-78); ANION GAP 5 MEQ/L (8-16); AST/SGOT 11 U/L (15-37); BILIRUBIN,TOTAL 0.5 MG/DL (0.2-1.0); BLOOD UREA NITROGEN 25 MG/DL (7-18); CARBON DIOXIDE LEVEL 31 MEQ/L (21-32); CHLORIDE LEVEL 106 MEQ/L (98-107); CREATININE FOR GFR 1.09 MG/DL (0.70-1.30); GLOMERULAR FILTRATION RATE > 60.0 (>35); GLUCOSE, FASTING 116 MG/DL (83-110); SODIUM LEVEL 142 MEQ/L (136-145); TOTAL PROTEIN 6.6 GM/DL (6.4-8.2)
== END ==
LOC: M SFHCPLAZ 08:11
PROVIDERS: ATTEND Internal Medicine
DX: Z85.46 Personal history of malignant neoplasm of prostate (principal); I10 Essential (primary) hypertension; R73.01 Impaired fasting glucose

== ENCOUNTER → 2018-08-27 | Outpatient (REF) | payer MEDICARE, OTHER ==
[2018-08-27 13:18] LABS: ESTIMATED AVERAGE GLUCOSE 131 MG/DL (60-110); HEMATOCRIT 42.7 % (42.0-52.0); HEMOGLOBIN A1c 6.2 %; MEAN CORPUSCULAR HEMOGLOBIN 30.7 pg (27.0-33.0); MEAN CORPUSCULAR HGB CONC 32.8 g/dl (32.0-36.5); MEAN CORPUSCULAR VOLUME 93.6 fl (80.0-96.0); PLATELET COUNT, AUTOMATED 259 10^3/uL (150-450); RED BLOOD COUNT 4.56 10^6/uL (4.30-6.10); RED CELL DISTRIBUTION WIDTH 12.6 % (11.5-14.5); WHITE BLOOD COUNT 7.2 10^3/uL (4.0-10.0)
[2018-08-27 14:07] LABS: ALBUMIN/GLOBULIN RATIO 1.43 (1.00-1.93); ALKALINE PHOSPHATASE 69 U/L (45-117); ALT/SGPT 19 U/L (12-78); ANION GAP 9 MEQ/L (8-16); AST/SGOT 12 U/L (7-37); BILIRUBIN,TOTAL 0.6 MG/DL (0.2-1.0); BLOOD UREA NITROGEN 22 MG/DL (7-18); CALCIUM LEVEL 8.7 MG/DL (8.8-10.2); CARBON DIOXIDE LEVEL 29 MEQ/L (21-32); CHLORIDE LEVEL 106 MEQ/L (98-107); GLOMERULAR FILTRATION RATE > 60.0 (>35); GLUCOSE, FASTING 104 MG/DL (70-100); POTASSIUM SERUM 4.6 MEQ/L (3.5-5.1); SODIUM LEVEL 144 MEQ/L (136-145); TOTAL PROTEIN 6.8 GM/DL (6.4-8.2)
== END ==
LOC: M SFHCPLAZ 09:53
DX: I10 Essential (primary) hypertension (principal); R73.01 Impaired fasting glucose; Z85.46 Personal history of malignant neoplasm of prostate
CPT/HCPCS: 83735

== ENCOUNTER 2019-03-21 19:36 | Observation (INO) | payer MEDICARE, OTHER ==
[~2019-03-21] VITALS: Ht 172.7 cm; Wt 77.3 kg
[~2019-03-21 19:36] MED LIST changes: +ACET-716 PO; -ACET30TAB PO
[2019-03-21] MEDS ORDERED: NS 500 ML IV ONE (20:30)
--- NOTE | 2019-03-21 21:32 | REPVR ---
EXAM: CT Head Without Contrast EXAM DATE/TIME: 03/21/19 (8:25pm) CLINICAL HISTORY: 83 year old male. Altered mental status / memory loss. Confusion or disorientation. TECHNIQUE: Imaging protocol: Axial computed tomography images of the head without contrast. Radiation optimization: All CT scans at this facility use at least one of these dose optimization techniques: automated exposure control; mA and/or kV adjustment per patient size (includes targeted exams where dose is matched to clinical indication); or iterative reconstruction. COMPARISON: CT HEAD of 11/27/16 FINDINGS: Brain: No acute hemorrhage. No cerebral edema. Age-appropriate atrophic changes are noted. Periventricular and subcortical areas of low attenuation, compatible with small vessel microischemic changes. Ventricles: Normal. No ventriculomegaly. Bones/joints: Unremarkable. No acute fracture. Sinuses: No acute sinusitis. Mild bilateral ethmoid sinus inflammatory changes. Mastoid air cells: Visualized mastoid air cells are unremarkable. No mastoid effusion. Soft tissues: Unremarkable. IMPRESSION: No acute intracranial pathology is appreciated. Chronic atrophic and microischemic changes are noted. A similar appearance was noed on 11/27/16. Electronically signed by: Ying Villalta On 03/21/2019 21:31:46 PM
[2019-03-21 21:59] LABS: BASO # 0.1 10^3/uL (0.0-0.2); BASO % 0.7 % (0.0-1.0); EOS # 0.3 10^3/uL (0.0-0.50); HEMATOCRIT 40.5 % (42.0-52.0); HEMOGLOBIN 13.4 g/dl (13.5-17.5); LYMPH % 24.1 % (24.0-44.0); MEAN CORPUSCULAR HEMOGLOBIN 31.5 pg (27.0-33.0); MEAN CORPUSCULAR HGB CONC 33.1 g/dl (32.0-36.5); MEAN CORPUSCULAR VOLUME 95.1 fl (80.0-96.0); MONO # 0.8 10^3/uL (0.0-0.8); MONO % 9.4 % (0.0-5.0); NEUTROPHILS # 5.1 10^3/uL (1.8-7.7); NEUTROPHILS % 62.7 % (36.0-66.0); PLATELET COUNT, AUTOMATED 214 10^3/uL (150-450); RED BLOOD COUNT 4.26 10^6/uL (4.30-6.10); WHITE BLOOD COUNT 8.2 10^3/uL (4.0-10.0)
[2019-03-21 22:50] LABS: ACETAMINOPHEN LEVEL < 2.0 UG/ML (10.0-30.0); ALBUMIN 3.6 GM/DL (3.2-5.2); ALT/SGPT 19 U/L (12-78); BILIRUBIN,DIRECT < 0.1 MG/DL (0.0-0.2); BILIRUBIN,TOTAL 0.3 MG/DL (0.2-1.0); BLOOD UREA NITROGEN 21 MG/DL (7-18); CALCIUM LEVEL 8.6 MG/DL (8.8-10.2); CARBON DIOXIDE LEVEL 31 MEQ/L (21-32); CHLORIDE LEVEL 106 MEQ/L (98-107); CPK CREATINE PHOSPHOKINASE 133 U/L (39-308); ETHYL ALCOHOL (ETHANOL) < 0.003 % (0.000-0.010); GLOMERULAR FILTRATION RATE > 60.0 (>35); GLUCOSE, FASTING 124 MG/DL (70-100); MB/CK RELATIVE INDEX 1.58 (< OR =4); POTASSIUM SERUM 3.8 MEQ/L (3.5-5.1); SALICYLATE LEVEL < 1.7 MG/DL (5.0-30.0); SODIUM LEVEL 142 MEQ/L (136-145); TOTAL PROTEIN 6.4 GM/DL (6.4-8.2); TROPONIN I < 0.02 NG/ML (< 0.10)
[2019-03-21 23:24] LABS: AMPHETAMINES LEVEL URINE NEGATIVE (NEGATIVE); BARBITURATES URINE NEGATIVE (NEGATIVE); BENZODIAZEPINES URINE NEGATIVE (NEGATIVE); CANNABINOIDS URINE NEGATIVE (NEGATIVE); COCAINE METABOLITE URINE NEGATIVE (NEGATIVE); METHADONE URINE NEGATIVE (NEGATIVE); OPIATES URINE NEGATIVE (NEGATIVE); PHENCYCLIDINE URINE NEGATIVE (NEGATIVE)
[2019-03-22] MEDS ORDERED: VITMTA PO (00:12)
[2019-03-22] MEDS ORDERED: TYLETAB14 PO (00:12)
[2019-03-22] MEDS ORDERED: ACETAMINOPHEN TAB 650MG DOSE (2X325MG) PO PRN (01:00)
[2019-03-22] MEDS ORDERED: MOM 30ML SUSPENSION UDC PO PRN (01:00)
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
--- NOTE | 2019-03-22 01:56 | REPVR ---
EXAM: CT Chest Without Contrast EXAM DATE/TIME: 03/22/2019 12:35 AM CLINICAL HISTORY: 83 years old, male; Signs and symptoms; Other: Abnormal cxr; Additional info: Abnormal cxr, confusion TECHNIQUE: Imaging protocol: Axial computed tomography images of the chest without intravenous contrast. Coronal and sagittal reformatted images were created and reviewed. 3D rendering: MIP reconstructed images were created and reviewed. Radiation optimization: All CT scans at this facility use at least one of these dose optimization techniques: automated exposure control; mA and/or kV adjustment per patient size (includes targeted exams where dose is matched to clinical indication); or iterative reconstruction. COMPARISON: CR Chest, 2 view PA, Lat 03/21/2019 8:40 PM FINDINGS: Thyroid: Circumscribed hypodense lesion in the right lobe of the thyroid measuring 2.2 cm. Lungs: Multiple nodules in the right lower lobe measuring up to 6 mm. Nodule in the lateral basal left lower lobe measuring 7 mm. Series 202 image 69. Nodule in the posterior left upper lobe measuring 6 mm. series 202 image 37. Nodule in the posterobasal right lower lobe measuring 5 mm. Series 202 image 70. No acute consolidation. Pleural space: Normal. No pneumothorax. No pleural effusion. Heart: Severe coronary artery calcification. Heart size is within normal limits. Lipomatous hypertrophy of the atrial septum. Aorta: Moderate calcified atherosclerotic disease. No aortic aneurysm. Lymph nodes: Unremarkable. No enlarged lymph nodes. Bones/joints: Moderate degenerative spine. No acute fracture. Soft tissues: Unremarkable. Kidneys and ureters: Left renal cyst measuring up to 6.9 cm. cyst is not fully imaged on this study. IMPRESSION: 1. No acute consolidation. 2. Multiple lung nodules. For patients at low risk (minimal or absent history of smoking and of other known risk factors), recommend CT at 3-6 months, then consider CT at 18-24 months. For patients at high risk (history of smoking or of other known risk factors), recommend CT at 3-6 months, then CT at 18-24 months. (Siri et al., Fleischner Society, 2017) 3. Lesion in the right lobe of the thyroid. No follow-up is recommended. 4. Left renal cyst. No followup is necessary. COMMENT: Consistent with the [employer]'s Incidental Findings Committee Report (J Am Jay Jay Radiol 2015): Thyroid nodules greater than or equal to 1 cm in patients under 35 years old, or greater than or equal to 1.5 cm in patients over 35 years old, should undergo ultrasound. Patients with limited life expectancy and/or comorbidities do not require follow up imaging or biopsy for nodules of any size. Electronically signed by: Scot Palma On 03/22/2019 01:55:42 AM
[2019-03-22 02:20] VITALS: BP 140/72
[2019-03-22] MEDS: HEPARIN SOD (PORCINE) 5000 UNITS/ML VIAL SC SCH ×3 (05:31→21:13)
[2019-03-22 06:00] VITALS: BP 105/64
--- NOTE | 2019-03-22 07:51 | ECGEPIP ---
Stationary ECG Study [facility] - ED Test Date: 2019-03-21 Pat Name: GIN SPRAGUE Department: Room: [place] [address] Gender: M Medicaid Nurse: nate : 1935 Requested By: SANDRA Granger Order Number: [id number] Reading MD: Joce Martinez Measurements Intervals [place] Rate: 94 P: 103 VT: 234 QRS: -44 QRSD: 100 T: 38 QT: 354 QTc: 443 Interpretive Statements SINUS RHYTHM WITH FIRST DEGREE AV BLOCK POSSIBLE LEFT ATRIAL ENLARGEMENT LEFT AXIS DEVIATION POSSIBLE LEFT VENTRICULAR HYPERTROPHY SIMILAR TO 11/27/16 Electronically Signed On 03-22-2019 7:51:11 EDT by Joce Martinez
[2019-03-22] MEDS: MULTIVITAMINS/MINERALS THERAP 1 TAB PO SCH (08:31)
[2019-03-22] MEDS: LISINOPRIL 10 MG TAB PO SCH (08:31)
--- NOTE | 2019-03-22 08:32 | REP ---
Chest x-ray: Two views. History: Altered mental status. Comparison chest x-ray February 07, 2008. Findings: The lungs are well inflated and free of infiltrate. The pleural angles are sharp. There are two soft tissue nodular densities near each other in the left base. These are seen on the frontal view. Neither is seen with confidence on the lateral film. Cannot exclude pulmonary nodules. There is minimal linear fibrosis in the right base and left base. Heart is not enlarged. The aorta somewhat tortuous. There are mild degenerative changes in the thoracic spine. Pulmonary vasculature is not increased. Impression: There are two 1 cm soft tissue nodular densities projecting in the left base. Rule out pulmonary nodule. Consider chest CT. Mild bibasilar linear fibrosis. Otherwise no acute disease. Electronically Signed by Ward Sky MD 03/22/2019 02:43 P
[2019-03-22] MEDS ORDERED: hydroCHLOROthiazide 12.5 MG CAPSULE PO SCH (09:00)
[2019-03-22 10:08] LABS: FOLATE 17.9 NG/ML (>5.4)
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
[2019-03-22 14:00] VITALS: BP 111/65
[2019-03-22 22:00] VITALS: BP 130/59
[2019-03-23] MEDS: HEPARIN SOD (PORCINE) 5000 UNITS/ML VIAL SC SCH ×2 (05:46→14:00)
[2019-03-23 06:00] VITALS: BP 113/60
[2019-03-23 07:42] LABS: HEMATOCRIT 44.6 % (42.0-52.0); HEMOGLOBIN 14.4 g/dl (13.5-17.5); MEAN CORPUSCULAR HEMOGLOBIN 30.6 pg (27.0-33.0); MEAN CORPUSCULAR HGB CONC 32.3 g/dl (32.0-36.5); MEAN CORPUSCULAR VOLUME 94.7 fl (80.0-96.0); PLATELET COUNT, AUTOMATED 221 10^3/uL (150-450); RED BLOOD COUNT 4.71 10^6/uL (4.30-6.10); WHITE BLOOD COUNT 7.4 10^3/uL (4.0-10.0)
[2019-03-23 08:02] LABS: BLOOD UREA NITROGEN 18 MG/DL (7-18); CALCIUM LEVEL 8.4 MG/DL (8.8-10.2); CARBON DIOXIDE LEVEL 23 MEQ/L (21-32); CHLORIDE LEVEL 109 MEQ/L (98-107); CREATININE FOR GFR 1.11 MG/DL (0.70-1.30); GLOMERULAR FILTRATION RATE > 60.0 (>35); GLUCOSE, FASTING 134 MG/DL (70-100); POTASSIUM SERUM 4.2 MEQ/L (3.5-5.1); SODIUM LEVEL 141 MEQ/L (136-145)
--- NOTE | 2019-03-23 09:16 | REP ---
MRI STUDY OF THE BRAIN WITHOUT CONTRAST: HISTORY: Transient memory loss. Comparison is made with head CT study from March 21, 2019. TECHNIQUE: Axial and sagittal imaging planes are utilized for T1- and T2-weighted scans. Sequences include spin-echo, fast spin echo, FLAIR, and diffusion weighted sequences. MRI FINDINGS: No bony calvarial lesion is seen. Craniocervical junction upper cervical cord are normal in appearance. There is some anterior falx dural ossification as seen on CT. There is moderate generalized volume loss. There is a tiny focal T2 hyperintensity in the left cerebral peduncle consistent with a tiny lacunar infarct. This measures only 2.8 mm. It is not visible on CT. There is no evidence of restricted diffusion here or elsewhere to suggest acute ischemia on diffusion weighted scans. No extra-axial fluid collection is seen. No mass, infarction or midline shift is seen. There is moderate generalized volume loss. Mild small vessel changes are seen. IMPRESSION: Moderate generalized volume loss. Mild small vessel changes. No acute intracranial abnormality. 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 Electronically Signed by Ward Sky MD 03/23/2019 09:52 A
[2019-03-23] MEDS: MULTIVITAMINS/MINERALS THERAP 1 TAB PO SCH (09:49)
[2019-03-23 09:50] VITALS: BP 136/78
[2019-03-23] MEDS: LISINOPRIL 10 MG TAB PO SCH (09:50)
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
[2019-03-23 14:00] VITALS: BP 119/58
== END 2019-03-23 14:25 | disposition home or self-care (01) ==
LOC: M ED 19:36 → M ED INP 19:40 → UNDOADMOB 03-22 00:36 → M MS5PR 03-22 02:00 → M ED INP 03-22 02:00 → UNDODISOB 03-23 14:25
PROVIDERS: ADMIT Internal Medicine; ATTEND Internal Medicine
DX: G45.4 Transient global amnesia (principal); G31.84 Mild cognitive impairment of uncertain or unknown etiology; Z87.820 Personal history of traumatic brain injury; I10 Essential (primary) hypertension; Z79.899 Other long term (current) drug therapy; R73.01 Impaired fasting glucose; E78.00 Pure hypercholesterolemia, unspecified; Z85.46 Personal history of malignant neoplasm of prostate; E55.9 Vitamin D deficiency, unspecified
CPT/HCPCS: 36415; 70450; 70551; 71046; 71250; 80048; 80076; 80307; 81001; 82140; 82550; 82553; 82607; 82746; 83605; 84443; 84484; 85025; 85027; 93005; 93041; 94760; 96360; 96361; 99285; G0378; G0480

== ENCOUNTER → 2019-04-04 | Outpatient (CLI) | payer MEDICARE, OTHER ==
[~2019-04-04] MED LIST changes: +TYLETAB14 PO; +VITMTA PO
--- NOTE | 2019-04-05 12:09 | EEG ---
DATE OF PROCEDURE: 04/04/2019 REFERRING PHYSICIAN: Margie Gould MD DIAGNOSIS: Seizure. EEG #: [id number] HISTORY The patient is an 83-year-old man who was admitted at [facility] due to an episode of amnesia and confusion. He was suspected to have transient global amnesia. This EEG was done to rule out epileptic potential. He is currently taking lisinopril. TECHNICAL DESCRIPTION This digital EEG was recorded by 21 scalp, ear and two EKG electrodes and was reviewed in bipolar and referential montages following reformatting in 10-20 international electrode placement system. INTERPRETATION The patient was noted to be in awake and drowsy states during this EEG. Resting awake background rhythm consisted of 9 Hz alpha activity measuring 10-30 microvolts in amplitude which was symmetric and reactive to eye opening. Attenuation of posterior dominant rhythm was seen during transition into drowsiness. Stage I and II sleep were reviewed and was symmetric bilaterally. Hyperventilation could not be performed. Photic stimulation remained unremarkable. EKG revealed normal sinus rhythm. No focal, lateralizing or epileptiform abnormalities were seen. No relevant clinical activity was noted. CONCLUSION This EEG in awake, drowsy states, stage I and II sleep is within normal limits.
== END ==
LOC: M SLEEP 07:51
PROVIDERS: ATTEND Internal Medicine Nephrology
DX: R56.9 Unspecified convulsions (principal)

== ENCOUNTER → 2019-10-07 | Outpatient (REF) | payer MEDICARE, OTHER ==
[~2019-10-07] MED LIST changes: +LISI10TA15 PO; -LISI10TA2 PO
[2019-10-07 14:04] LABS: ALBUMIN 3.9 GM/DL (3.2-5.2); BILIRUBIN,TOTAL 0.5 MG/DL (0.2-1.0); CALCIUM LEVEL 8.9 MG/DL (8.8-10.2); CHOLESTEROL RISK RATIO 3.358 (<5); CREATININE FOR GFR 1.23 MG/DL (0.70-1.30); GLOMERULAR FILTRATION RATE 59.8 (>35); POTASSIUM SERUM 4.1 MEQ/L (3.5-5.1); TOTAL PROTEIN 6.7 GM/DL (6.4-8.2)
[2019-10-07 14:42] LABS: HEMOGLOBIN A1c 6.7 %
== END ==
LOC: M SFHCPLAZ 10:32
PROVIDERS: ATTEND Internal Medicine
DX: I10 Essential (primary) hypertension (principal); R73.01 Impaired fasting glucose; E78.00 Pure hypercholesterolemia, unspecified
CPT/HCPCS: 36415; 80053; 80061; 83036; G0463

== ENCOUNTER → 2019-10-14 | Outpatient (CLI) | payer MEDICARE, OTHER ==
--- NOTE | 2019-10-14 16:18 | REP ---
Clinical: Lung nodule. Technique: Axial noncontrast images from the thoracic inlet to the upper abdomen with coronal and sagittal re-formations. Comparison: 03/22/2019. Findings: Chronic-appearing age-related interstitial changes are noted including scattered fibrosis/scarring. Scattered bilateral nodules including 3 mm posterior left upper lobe nodule (image 35), 8 mm left lower lobe nodule (image 60), and cluster of noncalcified nodules in the right lower lobe (images 42 - 45) remains stable. No new nodule or mass. No consolidation. No effusion. No pneumothorax. Tracheobronchial tree is patent. No obvious adenopathy noted. Mediastinum demonstrates atherosclerotic changes to the thoracic aorta and coronary arteries without aortic aneurysm or cardiomegaly. No pericardial effusion. Musculoskeletal structures are intact. Limited upper abdomen demonstrates normal bilateral adrenal glands and stable large left exophytic cyst measuring roughly 6.5 cm. Impression: 1. Scattered nodular densities remain stable. Consider reevaluation at 6-9 months to demonstrate chronicity/stability. 2. Chronic pleuroparenchymal changes. 3. Left renal cyst. 4. No acute mediastinal or pleuroparenchymal process appreciated. Electronically Signed by Joselito Herrera MD 10/14/2019 04:10 P
== END ==
LOC: M RAD 15:47
PROVIDERS: ATTEND Internal Medicine
DX: R91.1 Solitary pulmonary nodule (principal)

== ENCOUNTER → 2020-01-03 | Outpatient (CLI) | payer MEDICARE, OTHER ==
[2020-01-03 11:08] LABS: HEMOGLOBIN 14.2 g/dl (13.5-17.5); MEAN CORPUSCULAR HEMOGLOBIN 30.7 pg (27.0-33.0); MEAN CORPUSCULAR HGB CONC 32.3 g/dl (32.0-36.5); MEAN CORPUSCULAR VOLUME 95.2 fl (80.0-96.0); PLATELET COUNT, AUTOMATED 277 10^3/uL (150-450); RED BLOOD COUNT 4.62 10^6/uL (4.30-6.10); WHITE BLOOD COUNT 8.6 10^3/uL (4.0-10.0)
[2020-01-03 11:23] LABS: ALBUMIN 4.2 GM/DL (3.2-5.2); ALT/SGPT 25 U/L (12-78); BILIRUBIN,TOTAL 0.5 MG/DL (0.2-1.0); BLOOD UREA NITROGEN 25 MG/DL (7-18); CALCIUM LEVEL 9.1 MG/DL (8.8-10.2); CARBON DIOXIDE LEVEL 31 MEQ/L (21-32); CHLORIDE LEVEL 108 MEQ/L (98-107); CHOLESTEROL LEVEL 162 MG/DL (<200); CHOLESTEROL RISK RATIO 3.115 (<5); CREATININE FOR GFR 1.22 MG/DL (0.70-1.30); GLOMERULAR FILTRATION RATE > 60.0 (>35); GLUCOSE, FASTING 124 MG/DL (70-100); HDL CHOLESTEROL 52 MG/DL (>40); LDL CHOLESTEROL 96 MG/DL (<100); MAGNESIUM LEVEL 2.4 MG/DL (1.8-2.4); NON-HDL-C 110 MG/DL; POTASSIUM SERUM 5.1 MEQ/L (3.5-5.1); SODIUM LEVEL 142 MEQ/L (136-145); TRIGLYCERIDES LEVEL 71 MG/DL (<150)
[2020-01-03 11:48] LABS: HEMOGLOBIN A1c 6.6 %
== END ==
LOC: M PLALAB 09:01
PROVIDERS: ATTEND Internal Medicine
DX: R73.01 Impaired fasting glucose (principal); I10 Essential (primary) hypertension; E78.00 Pure hypercholesterolemia, unspecified; Z85.46 Personal history of malignant neoplasm of prostate

== ENCOUNTER → 2020-04-14 | Outpatient (REF) | payer MEDICARE, OTHER ==
[2020-04-14 18:38] LABS: HEMATOCRIT 40.4 % (42.0-52.0); HEMOGLOBIN 12.8 g/dl (13.5-17.5); MEAN CORPUSCULAR HEMOGLOBIN 29.8 pg (27.0-33.0); MEAN CORPUSCULAR HGB CONC 31.7 g/dl (32.0-36.5); MEAN CORPUSCULAR VOLUME 94.2 fl (80.0-96.0); PLATELET COUNT, AUTOMATED 264 10^3/uL (150-450); RED BLOOD COUNT 4.29 10^6/uL (4.30-6.10); WHITE BLOOD COUNT 7.4 10^3/uL (4.0-10.0)
[2020-04-14 19:03] LABS: ALBUMIN 3.8 GM/DL (3.2-5.2); ALT/SGPT 17 U/L (12-78); BILIRUBIN,TOTAL 0.3 MG/DL (0.2-1.0); BLOOD UREA NITROGEN 28 MG/DL (7-18); CALCIUM LEVEL 8.9 MG/DL (8.8-10.2); CARBON DIOXIDE LEVEL 32 MEQ/L (21-32); CHLORIDE LEVEL 107 MEQ/L (98-107); CHOLESTEROL LEVEL 155 MG/DL (<200); CHOLESTEROL RISK RATIO 3.297 (<5); CREATININE FOR GFR 1.22 MG/DL (0.70-1.30); GLOMERULAR FILTRATION RATE > 60.0 (>35); GLUCOSE, FASTING 99 MG/DL (70-100); HDL CHOLESTEROL 47 MG/DL (>40); LDL CHOLESTEROL 90 MG/DL (<100); MAGNESIUM LEVEL 2.2 MG/DL (1.8-2.4); NON-HDL-C 108 MG/DL; POTASSIUM SERUM 4.7 MEQ/L (3.5-5.1); PROSTATIC SPECIFIC AG MONITOR < 0.01 NG/ML (< 4.00); SODIUM LEVEL 143 MEQ/L (136-145); TOTAL PROTEIN 6.8 GM/DL (6.4-8.2); TRIGLYCERIDES LEVEL 91 MG/DL (<150)
== END ==
LOC: M SFHCPLAZ 16:04
PROVIDERS: ATTEND Internal Medicine
DX: I10 Essential (primary) hypertension (principal); E78.00 Pure hypercholesterolemia, unspecified; Z85.46 Personal history of malignant neoplasm of prostate
CPT/HCPCS: 80053; 80061; 83735; 84153; 85027; G0463

== ENCOUNTER → 2020-05-13 | Outpatient (REF) | payer MEDICARE, OTHER | LOC: M LAB REF 10:06 | PROVIDERS: ATTEND Dermatology | DX: L90.5 Scar conditions and fibrosis of skin (principal) ==

== ENCOUNTER → 2020-10-20 | Outpatient (REF) | payer MEDICARE, OTHER ==
[~2020-10-20] MED LIST changes: -ASPI81TA85 PO; +ASPI81TA86 PO
== END ==
LOC: M SFHCPLAZ 15:50
PROVIDERS: ATTEND Internal Medicine
DX: R73.01 Impaired fasting glucose (principal); I10 Essential (primary) hypertension; Z85.46 Personal history of malignant neoplasm of prostate

== ENCOUNTER → 2020-10-21 | Outpatient (REF) | payer MEDICARE, OTHER ==
[2020-10-21 13:47] LABS: BASO # 0.1 10^3/uL (0.0-0.2); BASO % 0.8 % (0.0-1.0); EOS # 0.3 10^3/uL (0.0-0.5); HEMATOCRIT 43.8 % (42.0-52.0); HEMOGLOBIN 13.7 g/dl (13.5-17.5); LYMPH # 2.1 10^3/uL (1.5-5.0); LYMPH % 32.4 % (24.0-44.0); MEAN CORPUSCULAR HEMOGLOBIN 29.7 pg (27.0-33.0); MEAN CORPUSCULAR HGB CONC 31.3 g/dl (32.0-36.5); MEAN CORPUSCULAR VOLUME 94.8 fl (80.0-96.0); MONO # 0.5 10^3/uL (0.0-0.8); MONO % 8.2 % (0.0-5.0); NEUTROPHILS # 3.4 10^3/uL (1.5-8.5); NEUTROPHILS % 53.4 % (36.0-66.0); PLATELET COUNT, AUTOMATED 236 10^3/uL (150-450); RED BLOOD COUNT 4.62 10^6/uL (4.30-6.10); WHITE BLOOD COUNT 6.4 10^3/uL (4.0-10.0)
[2020-10-21 14:11] LABS: BILIRUBIN,TOTAL 0.5 MG/DL (0.2-1.0); CALCIUM LEVEL 9.3 MG/DL (8.8-10.2); CREATININE FOR GFR 1.28 MG/DL (0.70-1.30); MAGNESIUM LEVEL 2.2 MG/DL (1.8-2.4); POTASSIUM SERUM 4.5 MEQ/L (3.5-5.1); TOTAL PROTEIN 6.8 GM/DL (6.4-8.2)
[2020-10-21 14:37] LABS: HEMOGLOBIN A1c 6.2 %
== END ==
LOC: M SFHCPLAZ 09:48
PROVIDERS: ATTEND Internal Medicine
DX: I10 Essential (primary) hypertension (principal); R73.01 Impaired fasting glucose; Z85.46 Personal history of malignant neoplasm of prostate

== ENCOUNTER → 2020-11-03 | Outpatient (CLI) | payer MEDICARE, OTHER ==
--- NOTE | 2020-11-03 14:37 | REP ---
INDICATION: OTHER NONSPECIFIC ABNORMAL FINDING OF LUNG FIELD COMPARISON: 10/14/2019 TECHNIQUE: Axial noncontrast images from the thoracic inlet to the upper abdomen with coronal and sagittal reformations. This CT examination was performed using the following dose reduction techniques: Automated exposure control, adjustment of mA and/or kv according to the patient's size, and use of iterative reconstruction technique. FINDINGS: Lung domingo demonstrate stable chronic scarring along the medial right middle lobe and to a lesser extent the lingula and bilateral lung bases. There is a small stable grouping of noncalcified nodules in the right lower lobe (image 60) as well as a stable 8 mm noncalcified nodule in the periphery of the left lower lobe (image 79) and smaller stable basilar nodules. No acute consolidation, significant nodule or mass lesion. No pleural effusion. No pneumothorax. Atherosclerotic changes to the thoracic aorta and coronary arteries again noted. No aortic aneurysm or cardiomegaly. No pericardial effusion. Limited upper abdomen demonstrates normal bilateral adrenal glands and exophytic left renal cyst measuring 6.6 cm. IMPRESSION: Stable noncalcified nodules/granulomas. No acute mediastinal or pleuroparenchymal process appreciated. <Electronically signed by Joselito Herrera > 11/03/20 [id number]
== END ==
LOC: M RAD 14:04
PROVIDERS: ATTEND Internal Medicine
DX: R91.8 Other nonspecific abnormal finding of lung field (principal)

== ENCOUNTER → 2020-12-04 | Outpatient (REF) | payer MEDICARE, OTHER | LOC: M LAB REF 17:34 | PROVIDERS: ATTEND Dermatology | DX: L90.5 Scar conditions and fibrosis of skin (principal) ==

== ENCOUNTER 2021-02-01 16:09 | Emergency (ER) | payer MEDICARE, OTHER ==
[~2021-02-01] VITALS: Ht 172.7 cm; Wt 79.1 kg
[2021-02-01 16:10] VITALS: BP 131/62
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
--- NOTE | 2021-02-03 10:37 | ED PDOC ---
Post-Departure Follow-Up dr flores faxed ct c spine for fu Shaw Fierro MD Feb 03, 2021 10:37
== END 2021-02-01 17:39 | disposition home or self-care (01) ==
LOC: M ED 16:09
DX: S13.4XXA Sprain of ligaments of cervical spine, initial encounter (principal); S09.90XA Unspecified injury of head, initial encounter; W01.0XXA Fall on same level from slipping, tripping and stumbling without subsequent striking against object, initial encounter; Y92.009 Unspecified place in unspecified non-institutional (private) residence as the place of occurrence of the external cause; Y93.9 Activity, unspecified; Y99.9 Unspecified external cause status; Z79.899 Other long term (current) drug therapy

== ENCOUNTER → 2021-04-27 | Outpatient (REF) | payer MEDICARE, OTHER ==
[2021-04-27 16:03] LABS: BASO % 0.6 % (0.0-1.0); EOS # 0.2 10^3/uL (0.0-0.5); EOS % 3.5 % (0.0-3.0); HEMATOCRIT 40.8 % (42.0-52.0); HEMOGLOBIN 13.2 g/dl (13.5-17.5); LYMPH # 2.1 10^3/uL (1.5-5.0); LYMPH % 31.6 % (24.0-44.0); MEAN CORPUSCULAR HEMOGLOBIN 30.8 pg (27.0-33.0); MEAN CORPUSCULAR HGB CONC 32.4 g/dl (32.0-36.5); MEAN CORPUSCULAR VOLUME 95.3 fl (80.0-96.0); MONO # 0.6 10^3/uL (0.0-0.8); MONO % 9.1 % (2.0-8.0); NEUTROPHILS # 3.6 10^3/uL (1.5-8.5); NEUTROPHILS % 54.9 % (36.0-66.0); PLATELET COUNT, AUTOMATED 203 10^3/uL (150-450); RED BLOOD COUNT 4.28 10^6/uL (4.30-6.10); WHITE BLOOD COUNT 6.6 10^3/uL (4.0-10.0)
[2021-04-27 16:33] LABS: ALBUMIN 4.1 GM/DL (3.2-5.2); ALT/SGPT 15 U/L (12-78); BILIRUBIN,TOTAL 0.4 MG/DL (0.2-1.0); BLOOD UREA NITROGEN 26 MG/DL (7-18); CALCIUM LEVEL 9.5 MG/DL (8.8-10.2); CARBON DIOXIDE LEVEL 30 MEQ/L (21-32); CHLORIDE LEVEL 108 MEQ/L (98-107); CHOLESTEROL LEVEL 176 MG/DL (<200); FREE T4 1.03 NG/DL (0.76-1.46); GLOMERULAR FILTRATION RATE > 60.0 (>35); GLUCOSE, FASTING 97 MG/DL (70-100); HDL CHOLESTEROL 53 MG/DL (>40); LDL CHOLESTEROL 112 MG/DL (<100); MAGNESIUM LEVEL 2.4 MG/DL (1.8-2.4); NON-HDL-C 123 MG/DL; POTASSIUM SERUM 4.2 MEQ/L (3.5-5.1); PROSTATIC SPECIFIC AG MONITOR < 0.01 NG/ML (< 4.00); SODIUM LEVEL 142 MEQ/L (136-145); TOTAL PROTEIN 6.8 GM/DL (6.4-8.2); TRIGLYCERIDES LEVEL 57 MG/DL (<150)
[2021-04-27 16:37] LABS: MALB URINE SIEMENS 9.2 MG/L; MAU/CREAT RATIO 5.6 MCG/MG (0.0-30.0)
[2021-04-27 19:06] LABS: HEMOGLOBIN A1c 6.2 %
== END ==
LOC: M SFHCPLAZ 11:11
PROVIDERS: ATTEND Internal Medicine
DX: E78.00 Pure hypercholesterolemia, unspecified (principal); I10 Essential (primary) hypertension; R91.8 Other nonspecific abnormal finding of lung field; R73.01 Impaired fasting glucose; E04.1 Nontoxic single thyroid nodule; Z11.59 Encounter for screening for other viral diseases; Z85.46 Personal history of malignant neoplasm of prostate
CPT/HCPCS: 36415; 80053; 80061; 82043; 83036; 83735; 84153; 84439; 84443; 85025; G0463; G0472

== ENCOUNTER → 2021-04-30 | Outpatient (CLI) | payer MEDICARE, OTHER ==
--- NOTE | 2021-04-30 16:08 | REP ---
INDICATION: THYROID NODULE. COMPARISON: None. TECHNIQUE: Real-time sonographic evaluation of thyroid performed. FINDINGS: Both lobes of the thyroid are diffusely heterogeneous in echotexture. Right lobe measures 4.0 x 2.1 x 1.8 cm and left lobe 3.8 x 1.8 x 1.9 cm. Multiple cystic and solid nodules are seen bilaterally. Most are 5 mm or less. A complex cystic nodule in the right upper pole measures 7 x 5 x 7 mm. A complex cystic and solid nodule in the mid to lower right lobe is predominantly cystic and measures 3.0 x 2.0 x 2.4 cm. A cyst in the mid left lobe measures 6 mm in diameter. IMPRESSION: Multiple cystic and solid nodules bilaterally, most are less than 5 mm in diameter. The largest nodule is predominantly cystic but contains internal solid components in the lower right lobe. Maximum diameter is 3.0 cm. Given the size of this dominant nodule, consider FNA of the solid component. Otherwise recommend follow-up ultrasound in 6 months. <Electronically signed by Pierce Patel > 04/30/21 [id number]
== END ==
LOC: M RAD 14:55
PROVIDERS: ATTEND Internal Medicine
DX: E04.1 Nontoxic single thyroid nodule (principal)

== ENCOUNTER → 2021-05-06 | Outpatient (REF) | payer MEDICARE, OTHER | LOC: M LAB REF 17:24 | PROVIDERS: ATTEND Internal Medicine Endocrinology, Diabetes & Metabolism | DX: E04.1 Nontoxic single thyroid nodule (principal) ==

== ENCOUNTER 2021-05-10 08:30 | Outpatient (RCR) | payer MEDICARE, OTHER | END 2021-05-12 | LOC: M PT 08:30 | PROVIDERS: ATTEND Internal Medicine | DX: Z91.81 History of falling (principal); M54.2 Cervicalgia; M54.5 Low back pain ==

== ENCOUNTER 2021-06-10 08:24 | Outpatient (RCR) | payer MEDICARE, OTHER | END 2021-06-12 | LOC: M PT 08:24 | PROVIDERS: ATTEND Internal Medicine | DX: M54.2 Cervicalgia (principal); M54.5 Low back pain; Z91.81 History of falling ==

== ENCOUNTER 2021-06-17 19:23 | Emergency (ER) | payer MEDICARE, OTHER ==
[~2021-06-17] VITALS: Ht 172.7 cm; Wt 72.7 kg
[2021-06-17 19:26] VITALS: BP 149/88
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
== END 2021-06-17 21:47 | disposition home or self-care (01) ==
LOC: M ED 19:23
DX: S00.01XA Abrasion of scalp, initial encounter (principal); W19.XXXA Unspecified fall, initial encounter; Y92.099 Unspecified place in other non-institutional residence as the place of occurrence of the external cause; Y93.89 Activity, other specified; Y99.9 Unspecified external cause status; I10 Essential (primary) hypertension; M50.30 Other cervical disc degeneration, unspecified cervical region; Z79.899 Other long term (current) drug therapy

== ENCOUNTER 2021-08-20 03:40 | Emergency (ER) | payer MEDICARE, OTHER ==
[~2021-08-20] VITALS: Ht 182.9 cm; Wt 84.1 kg
[2021-08-20] MEDS ORDERED: ASPI81TA26 PO (03:52)
[2021-08-20 04:28] LABS: BASO # 0.1 10^3/uL (0.0-0.2); BASO % 0.7 % (0.0-1.0); EOS # 0.3 10^3/uL (0.0-0.5); EOS % 4.4 % (0.0-3.0); HEMATOCRIT 40.3 % (42.0-52.0); LYMPH # 2.4 10^3/uL (1.5-5.0); LYMPH % 34.4 % (24.0-44.0); MEAN CORPUSCULAR HGB CONC 32.3 g/dl (32.0-36.5); MONO # 0.6 10^3/uL (0.0-0.8); MONO % 8.8 % (2.0-8.0); NEUTROPHILS # 3.5 10^3/uL (1.5-8.5); NEUTROPHILS % 51.6 % (36.0-66.0); PLATELET COUNT, AUTOMATED 234 10^3/uL (150-450); WHITE BLOOD COUNT 6.8 10^3/uL (4.0-10.0)
[2021-08-20 04:42] LABS: INR 1.04
[2021-08-20 04:43] LABS: PARTIAL THROMBOPLASTIN TIME 31.5 SECONDS (25.9-37.0)
[2021-08-20 04:51] LABS: CPK CREATINE PHOSPHOKINASE 59 U/L (39-308); MB/CK RELATIVE INDEX 1.69 (< OR =4); TROPONIN I < 0.02 NG/ML (< 0.10)
--- NOTE | 2021-08-20 05:18 | REPVR ---
PROCEDURE INFORMATION: Exam: CT Head Without Contrast Exam date and time: 08/20/2021 3:52 AM Age: 85 years old Clinical indication: Pain; Headache not specified; Additional info: CVA - nursing interventions must not delay CT TECHNIQUE: Imaging protocol: Computed tomography of the head without contrast. Radiation optimization: All CT scans at this facility use at least one of these dose optimization techniques: automated exposure control; mA and/or kV adjustment per patient size (includes targeted exams where dose is matched to clinical indication); or iterative reconstruction. Other technique: STROKE PROTOCOL was implemented. COMPARISON: CT Head without contrast 06/17/2021 7:34 PM FINDINGS: Brain: There is stable moderate, diffuse parenchymal volume loss. The cortical/white matter interfaces are preserved throughout the brain. There is no evidence of intracranial hemorrhage. Cerebral ventricles: The ventricular system demonstrates stable moderate diffuse compensatory enlargement. There is a stable, mild asymmetry of the anterior horns of the lateral ventricles. Paranasal sinuses: The visualized paranasal sinuses are clear. Mastoid air cells: The mastoid air cells are clear. Vasculature: Atherosclerotic calcifications are seen in the cerebral arteries at the skull base. Bones/joints: No acute fractures of the skull are identified. Soft tissues: The soft tissues appear unremarkable. IMPRESSION: 1. Stable moderate diffuse parenchymal volume loss. 2. No evidence of acute infarct or hemorrhage. ASSESSMENT: ASPECTS (Snehal Stroke Program Early CT Score) = 10, normal. Electronically signed by: Myla Palma On 08/20/2021 05:17:46 AM
--- NOTE | 2021-08-20 05:19 | REPVR ---
PROCEDURE INFORMATION: Exam: XR Chest Exam date and time: 08/20/2021 4:15 AM Age: 85 years old Clinical indication: Other: CVA TECHNIQUE: Imaging protocol: XR of the chest. Views: 1 view. COMPARISON: CT Chest without contrast 11/03/2020 2:30 PM FINDINGS: Lungs: There is a nodule in the left lung base corresponding with a calcified granuloma in the left lower lobe on the prior CT scan. No follow-up imaging is needed. There is no significant consolidation. Pleural spaces: No pleural effusions or pneumothorax identified. Heart/Mediastinum: The heart is normal in size. Bones/joints: No suspicious osseous lesions. No acute fractures. IMPRESSION: No evidence of acute pleural or pulmonary parenchymal disease. Electronically signed by: Myla Palma On 08/20/2021 05:19:31 AM
[2021-08-20] MEDS ORDERED: ISOVUE-370 76% 100ML VIAL As Ordered ONE (05:34)
--- NOTE | 2021-08-20 05:50 | ECGEPIP ---
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
--- NOTE | 2021-08-20 06:09 | REPVR ---
PROCEDURE INFORMATION: Exam: CT Angiography Head With Contrast, Arteriography Exam date and time: 08/20/2021 5:30 AM Age: 85 years old Clinical indication: Pain; Headache; Additional info: New onset positional headache TECHNIQUE: Imaging protocol: Computed tomography angiography of the head with contrast. Exam focused on the arteries. 3D rendering (Not supervised by radiologist): MIP and/or 3D reconstructed images were created by the technologist. Radiation optimization: All CT scans at this facility use at least one of these dose optimization techniques: automated exposure control; mA and/or kV adjustment per patient size (includes targeted exams where dose is matched to clinical indication); or iterative reconstruction. Contrast material: ISO; Contrast volume: 100 ml; Contrast route: INTRAVENOUS (IV); COMPARISON: CT Head without contrast 08/20/2021 3:57 AM FINDINGS: ANTERIOR CIRCULATION: Right internal carotid artery: There is calcified plaque in the right internal carotid artery, without focal stenosis. No occlusion or aneurysm. Right middle cerebral artery: No occlusion, stenosis, or aneurysm. Right anterior cerebral artery: No occlusion, stenosis, or aneurysm. Left internal carotid artery: There is calcified plaque in the left internal carotid artery, without focal stenosis. No occlusion or aneurysm. Left middle cerebral artery: No occlusion, stenosis, or aneurysm. Left anterior cerebral artery: There is a hypoplastic A1 segment of the left anterior cerebral artery, probably a normal variant. The remainder of the left anterior cerebral artery is patent and normal in caliber. POSTERIOR CIRCULATION: Right vertebral artery: No occlusion, stenosis, or aneurysm. Left vertebral artery: There is a mild stenosis of the distal left intracranial vertebral artery. No occlusion or aneurysm. Basilar artery: No occlusion, significant stenosis, or aneurysm. Right posterior cerebral artery: No occlusion, stenosis, or aneurysm. Left posterior cerebral artery: No occlusion, stenosis, or aneurysm. Brain: There is moderate, diffuse parenchymal volume loss. Cerebral ventricles: The ventricular system demonstrates moderate diffuse compensatory enlargement. Bones/joints: Unremarkable. No acute fracture. Soft tissues: Unremarkable. Paranasal sinuses: There is patchy mucoperiosteal thickening in the ethmoid sinus. IMPRESSION: 1. Mild stenosis of the distal left intracranial vertebral artery. 2. No large vessel occlusion, high-grade stenosis, or aneurysms identified. Electronically signed by: Myla Palma On 08/20/2021 06:08:46 AM
[2021-08-20 06:15] VITALS: BP 125/64
--- NOTE | 2021-08-20 06:15 | REPVR ---
PROCEDURE INFORMATION: Exam: CT Angiography Neck With Contrast Exam date and time: 08/20/2021 5:30 AM Age: 85 years old Clinical indication: Pain; Headache; Additional info: New onset positional headache TECHNIQUE: Imaging protocol: Computed tomography angiography of the neck with contrast. 3D rendering (Not supervised by radiologist): MIP and/or 3D reconstructed images were created by the technologist. Radiation optimization: All CT scans at this facility use at least one of these dose optimization techniques: automated exposure control; mA and/or kV adjustment per patient size (includes targeted exams where dose is matched to clinical indication); or iterative reconstruction. Contrast material: ISO; Contrast volume: 100 ml; Contrast route: INTRAVENOUS (IV); COMPARISON: CT Head without contrast 08/20/2021 3:57 AM FINDINGS: Right common carotid artery: The right common carotid artery is patent with no stenosis, occlusion, or dissection. The origin of the right common carotid artery is not fully included. Right internal carotid artery: There is plaque at the right carotid bulb, not resulting in significant luminal narrowing. The right cervical internal carotid artery is patent with no stenosis, occlusion, or dissection. Right external carotid artery: The proximal right external carotid artery is patent with no stenosis or occlusion. Left common carotid artery: The left common carotid artery is patent with no stenosis, occlusion or dissection. The origin of the left common carotid artery is not fully included. Left internal carotid artery: There is plaque at the left carotid bulb, not resulting in significant luminal narrowing. The left cervical internal carotid artery is patent with no stenosis, occlusion, or dissection. Left external carotid artery: The proximal left external carotid artery is patent with no stenosis or occlusion. Right vertebral artery: No occlusion, stenosis, or dissection. Left vertebral artery: No occlusion, stenosis, or dissection. Thyroid: There is a low-attenuation nodule in the right lobe of the thyroid measuring 1.5 x 2.3 cm. No follow-up is recommended. Soft tissues: The soft tissues appear unremarkable. Bones/joints: Degenerative endplate changes are seen at multiple levels in the visualized spine. There is advanced multilevel hypertrophic facet arthropathy in the cervical spine. Lungs: The visualized lung apices are clear. IMPRESSION: 1. Small amount of plaque in the carotid bulbs bilaterally. No stenosis, occlusion, or dissection identified in the cervical carotid or vertebral arteries. 2. 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 COMMENTS: Consistent with the [employer]'s Incidental Findings Committee white paper (J Am Jay Jay [employer]iol 2015): In patients aged 35 years and older with an incidental thyroid nodule equal to or greater than 1.[address], MRI or extrathyroidal US, further evaluation with dedicated thyroid US is recommended for patients with normal life expectancy and without comorbidities. For smaller nodules without suspicious features, no further evaluation or follow up is recommended. REFERENCES: NASCET CRITERIA. The degree of internal carotid artery stenosis is based on NASCET criteria. Normal is no stenosis. Mild is less than 50% stenosis. Moderate is 50-69% stenosis. Severe is 70% to 99% stenosis. Total occlusion is no detectable patent lumen. Electronically signed by: Myla Palma On 08/20/2021 06:14:44 AM
== END 2021-08-20 07:46 | disposition home or self-care (01) ==
LOC: M ED 03:40
DX: R51.9 Headache, unspecified (principal); I44.7 Left bundle-branch block, unspecified; I65.02 Occlusion and stenosis of left vertebral artery; R94.31 Abnormal electrocardiogram [ECG] [EKG]; I10 Essential (primary) hypertension; Z79.82 Long term (current) use of aspirin; Z79.899 Other long term (current) drug therapy; Z91.81 History of falling; Z85.46 Personal history of malignant neoplasm of prostate
CPT/HCPCS: 70450; 70496; 70498; 71045; 80047; 82550; 82553; 84484; 85025; 85610; 85730; 93005; 93041; 94760; 99285; Q9967

== ENCOUNTER → 2021-10-25 | Outpatient (CLI) | payer MEDICARE, OTHER ==
[~2021-10-25] MED LIST changes: +ASPI81TA26 PO; +EQ HPAD TOP; -LISI10TA15 PO; +LISI10TA24 PO
== END ==
LOC: M PLALAB 11:24
PROVIDERS: ATTEND Internal Medicine
DX: R73.01 Impaired fasting glucose (principal); Z53.8 Procedure and treatment not carried out for other reasons

== ENCOUNTER 2021-12-25 07:47 | Emergency (ER) | payer MEDICARE, OTHER ==
[~2021-12-25] VITALS: Ht 172.7 cm; Wt 72.7 kg
[~2021-12-25 07:47] MED LIST changes: -EQ HPAD TOP
[2021-12-25 08:11] VITALS: BP 139/92
[2021-12-25] MEDS ORDERED: EQ HPAD TOP (08:38)
== END 2021-12-25 09:09 | disposition home or self-care (01) ==
LOC: M ED 07:47
DX: K92.2 Gastrointestinal hemorrhage, unspecified (principal); K64.8 Other hemorrhoids; I10 Essential (primary) hypertension

== ENCOUNTER → 2022-05-04 | Outpatient (REF) | payer MEDICARE, OTHER ==
[~2022-05-04] MED LIST changes: +EQ HPAD TOP
== END ==
LOC: M SFHCPLAZ 10:34
PROVIDERS: ATTEND Internal Medicine
DX: E78.00 Pure hypercholesterolemia, unspecified (principal); I10 Essential (primary) hypertension; R73.01 Impaired fasting glucose; Z85.46 Personal history of malignant neoplasm of prostate

== ENCOUNTER → 2022-10-17 | Outpatient (CLI) | payer MEDICARE, OTHER ==
[2022-10-17 15:46] LABS: HEMATOCRIT 41.5 % (42.0-52.0); HEMOGLOBIN 13.1 g/dl (13.5-17.5); MEAN CORPUSCULAR HEMOGLOBIN 30.5 pg (27.0-33.0); MEAN CORPUSCULAR HGB CONC 31.6 g/dl (32.0-36.5); MEAN CORPUSCULAR VOLUME 96.7 fl (80.0-96.0); PLATELET COUNT, AUTOMATED 244 10^3/uL (150-450); RED BLOOD COUNT 4.29 10^6/uL (4.30-6.10); WHITE BLOOD COUNT 7.5 10^3/uL (4.0-10.0)
[2022-10-17 17:00] LABS: C REACTIVE PROTEIN QUANTITATIV 0.4 MG/DL (<1.0)
[2022-10-17 17:02] LABS: BILIRUBIN,TOTAL 0.4 MG/DL (0.3-1.2); CALCIUM LEVEL 9.1 MG/DL (8.3-10.6); CHOLESTEROL RISK RATIO 2.98 (<5); CREATININE FOR GFR 1.22 MG/DL (0.70-1.30); FREE T4 1.12 NG/DL (0.89-1.76); HDL CHOLESTEROL 47.3 MG/DL (>40); LDL CHOLESTEROL 70.5 MG/DL (<100); POTASSIUM SERUM 4.8 MMOL/L (3.5-5.1); PROSTATIC SPECIFIC AG MONITOR 0.06 NG/ML (< 4.00); THYROID STIMULATING HORMONE 1.263 uIU/ML (0.55-4.78); TOTAL 25(OH) VITAMIN D 27.3 NG/ML (20.0-100.0); TOTAL PROTEIN 6.7 G/DL (5.7-8.2)
[2022-10-17 17:35] LABS: HEMOGLOBIN A1c 6.3 % (4.0-6.0)
== END ==
LOC: M PLALAB 14:25
PROVIDERS: ATTEND Internal Medicine Hematology
DX: E78.00 Pure hypercholesterolemia, unspecified (principal); R97.20 Elevated prostate specific antigen [PSA]

== ENCOUNTER 2023-04-09 02:23 | Inpatient (IN) | payer MEDICARE ==
[2023-04-09] VITALS (28 sets, daily range): BP systolic 114–207; BP diastolic 65–96
[2023-04-09] MEDS ORDERED: PROPOFOL 1,000 MG/100 ML VIAL As Ordered ONE (02:29)
[2023-04-09] MEDS ORDERED: ROCURONIUM BROMIDE 50MG/5ML VIAL IV ONE (02:35)
[2023-04-09] MEDS ORDERED: ETOMIDATE INJ 20MG/10ML VIAL IV ONE (02:35)
[2023-04-09 02:36] LABS: BASO % 0.5 % (0.0-1.0); EOS # 0.3 10^3/uL (0.0-0.5); EOS % 3.6 % (0.0-3.0); HEMOGLOBIN 11.4 g/dl (13.5-17.5); LYMPH # 2.1 10^3/uL (1.5-5.0); LYMPH % 24.1 % (24.0-44.0); MEAN CORPUSCULAR HEMOGLOBIN 32.2 pg (27.0-33.0); MEAN CORPUSCULAR HGB CONC 32.6 g/dl (32.0-36.5); MEAN CORPUSCULAR VOLUME 98.9 fl (80.0-96.0); MONO # 0.8 10^3/uL (0.0-0.8); MONO % 9.4 % (2.0-8.0); NEUTROPHILS # 5.4 10^3/uL (1.5-8.5); NEUTROPHILS % 62.1 % (36.0-66.0); PLATELET COUNT, AUTOMATED 204 10^3/uL (150-450); RED BLOOD COUNT 3.54 10^6/uL (4.30-6.10); WHITE BLOOD COUNT 8.7 10^3/uL (4.0-10.0)
[2023-04-09 02:58] LABS: ALBUMIN 3.7 G/DL (3.2-5.2); ALKALINE PHOSPHATASE 69 U/L (46-116); ALT/SGPT 19 U/L (7.0-40); AST/SGOT 15 U/L (<34); BILIRUBIN,DIRECT < 0.1 MG/DL (<0.4); BILIRUBIN,TOTAL 0.2 MG/DL (0.3-1.2); BLOOD UREA NITROGEN 30 MG/DL (9-23); CALCIUM LEVEL 8.4 MG/DL (8.3-10.6); CARBON DIOXIDE LEVEL 29 MMOL/L (20-31); CHLORIDE LEVEL 109 MMOL/L (98-107); CREATININE FOR GFR 1.43 MG/DL (0.70-1.30); GLOMERULAR FILTRATION RATE 49.8 (>35); GLUCOSE, FASTING 153 MG/DL (74-106); POTASSIUM SERUM 4.1 MMOL/L (3.5-5.1); SODIUM LEVEL 143 MMOL/L (136-145)
[2023-04-09 02:59] LABS: CK-MB VALUE MASS < 1.0 NG/ML (<3.6)
[2023-04-09 03:00] LABS: CPK CREATINE PHOSPHOKINASE 88 U/L (46-171); MB/CK RELATIVE INDEX 1.13 (< OR =4)
[2023-04-09] MEDS ORDERED: propofoL 1,000 MG in IV 1 EA IV SCH ×2 (03:45→05:35)
[2023-04-09] MEDS ORDERED: fentaNYL 100 MCG/2 ML INJECTION IV PRN (04:10)
[2023-04-09 04:39] LABS: CK-MB VALUE MASS < 1.0 NG/ML (<3.6)
[2023-04-09 04:49] LABS: CPK CREATINE PHOSPHOKINASE 96 U/L (46-171); MB/CK RELATIVE INDEX 1.04 (< OR =4)
[2023-04-09] MEDS ORDERED: LR 1,000 ML IV SCH (05:35)
[2023-04-09] MEDS ORDERED: ACET650T61 PO (06:03)
[2023-04-09] MEDS ORDERED: HOME MED LIST COMPLETE! XX SCH (06:05)
[2023-04-09] MEDS: HEPARIN SOD (PORCINE) 5000UNITS/ML 1ML VIAL/SYRINGE SC SCH ×3 (06:38→21:41)
[2023-04-09] MEDS ORDERED: MIDAZOLAM INJ 2MG/2ML VIAL IV PRN (08:20)
[2023-04-09] MEDS ORDERED: CHLORHEXIDINE GLUCONATE 0.12 % 15ML UDC (PERIDEX ORAL RINSE) MT SCH (09:00)
[2023-04-09 09:08] LABS: BLOOD UREA NITROGEN 30 MG/DL (9-23); CARBON DIOXIDE LEVEL 22 MMOL/L (20-31); CHLORIDE LEVEL 109 MMOL/L (98-107); CREATININE FOR GFR 1.28 MG/DL (0.70-1.30); GLOMERULAR FILTRATION RATE 56.6 (>35); GLUCOSE, FASTING 150 MG/DL (74-106); POTASSIUM SERUM 3.8 MMOL/L (3.5-5.1); SODIUM LEVEL 144 MMOL/L (136-145)
[2023-04-09 09:17] LABS: ABG BASE EXCESS 6.4 (-2.0-2.0); ABG HCO3 26.1 MMOL/L (22.0-26.0); ABG O2 SATURATION 99.7 % (95.0-99.0); ABG PARTIAL PRESSURE CO2 24.2 mmHg (35.0-45.0); ABG PARTIAL PRESSURE O2 180.1 mmHg (75.0-100.0); ABG STANDARD HCO3 30.4 MMOL/L. (22.0-26.0); ABG TOTAL CO2 26.9 MMOL/L (23.0-31.0)
[2023-04-09 09:18] LABS: ABG pH (ARTERIAL) 7.651 UNITS (7.350-7.450)
[2023-04-09] MEDS: PANTOPRAZOLE 40MG VIAL IV SCH (09:24)
[2023-04-09] MEDS ORDERED: RAMELTEON 8 MG TAB (ROZEREM) PO ONE (20:10)
[2023-04-09] MEDS ORDERED: QUEtiapine FUMARATE 25 MG TAB PO ONE (20:10)
[2023-04-10] VITALS: BP 166/81
[2023-04-10 04:00] VITALS: BP 167/77
[2023-04-10 04:11] LABS: HEMATOCRIT 37.1 % (42.0-52.0); HEMOGLOBIN 12.3 g/dl (13.5-17.5); MEAN CORPUSCULAR HEMOGLOBIN 31.9 pg (27.0-33.0); MEAN CORPUSCULAR HGB CONC 33.2 g/dl (32.0-36.5); MEAN CORPUSCULAR VOLUME 96.4 fl (80.0-96.0); PLATELET COUNT, AUTOMATED 200 10^3/uL (150-450); RED BLOOD COUNT 3.85 10^6/uL (4.30-6.10); WHITE BLOOD COUNT 10.3 10^3/uL (4.0-10.0)
[2023-04-10 04:48] LABS: BLOOD UREA NITROGEN 18 MG/DL (9-23); CALCIUM LEVEL 8.2 MG/DL (8.3-10.6); CARBON DIOXIDE LEVEL 28 MMOL/L (20-31); CHLORIDE LEVEL 110 MMOL/L (98-107); CREATININE FOR GFR 1.11 MG/DL (0.70-1.30); GLOMERULAR FILTRATION RATE > 60.0 (>35); GLUCOSE, FASTING 131 MG/DL (74-106); POTASSIUM SERUM 3.4 MMOL/L (3.5-5.1); SODIUM LEVEL 144 MMOL/L (136-145)
[2023-04-10] MEDS ORDERED: POTASSIUM CHLORIDE 10% LIQ 20MEQ/15ML UDC PO ONE (05:20)
[2023-04-10] MEDS: HEPARIN SOD (PORCINE) 5000UNITS/ML 1ML VIAL/SYRINGE SC SCH ×3 (06:00→21:09)
[2023-04-10] MEDS ORDERED: POTASSIUM CHLORIDE 10MEQ SR TABLET PO ONE (07:15)
[2023-04-10 08:00] VITALS: BP 153/82
[2023-04-10 08:10] LABS: ABG BASE EXCESS 4.2 (-2.0-2.0); ABG HCO3 28.8 MMOL/L (22.0-26.0); ABG O2 SATURATION 96.4 % (95.0-99.0); ABG PARTIAL PRESSURE CO2 42.9 mmHg (35.0-45.0); ABG PARTIAL PRESSURE O2 83.1 mmHg (75.0-100.0); ABG STANDARD HCO3 28.3 MMOL/L. (22.0-26.0); ABG TOTAL CO2 30.1 MMOL/L (23.0-31.0); ABG pH (ARTERIAL) 7.445 UNITS (7.350-7.450)
[2023-04-10 12:00] VITALS: BP 132/61
[2023-04-10] MEDS: PANTOPRAZOLE 40MG VIAL IV SCH (12:08)
[2023-04-10 16:00] VITALS: BP 133/60
[2023-04-10] MEDS ORDERED: QUEtiapine FUMARATE 25 MG TAB PO SCH (17:00)
[2023-04-10 20:00] VITALS: BP 146/65
[2023-04-11] VITALS: BP 153/73
[2023-04-11 04:00] VITALS: BP 147/83
[2023-04-11] MEDS: HEPARIN SOD (PORCINE) 5000UNITS/ML 1ML VIAL/SYRINGE SC SCH (05:09)
[2023-04-11 05:37] LABS: HEMOGLOBIN 12.1 g/dl (13.5-17.5); MEAN CORPUSCULAR HGB CONC 32.7 g/dl (32.0-36.5); MEAN CORPUSCULAR VOLUME 97.9 fl (80.0-96.0); PLATELET COUNT, AUTOMATED 188 10^3/uL (150-450); RED BLOOD COUNT 3.78 10^6/uL (4.30-6.10)
[2023-04-11 06:12] LABS: CREATININE FOR GFR 1.22 MG/DL (0.70-1.30); GLOMERULAR FILTRATION RATE 59.8 (>35); POTASSIUM SERUM 3.8 MMOL/L (3.5-5.1)
[2023-04-11 08:24] VITALS: BP 139/63
[2023-04-11 08:58] VITALS: BP 139/63
[2023-04-11] MEDS: PANTOPRAZOLE 40MG VIAL IV SCH (08:58)
[2023-04-11] MEDS ORDERED: QUET1TAB17 PO (11:25)
[2023-04-12] MEDS ORDERED: QUET1TAB17 PO (00:13)
[2023-04-12] MEDS ORDERED: MELO15TA28 PO (00:13)
[2023-04-12] MEDS ORDERED: DOCU100C16 PO (00:13)
== END 2023-04-11 13:30 | disposition home health service (06) | DRG 208 ==
LOC: M ED 02:23 → EDBD 02:23 → M ED INP 05:32 → M ICU 06:05
PROVIDERS: ADMIT Internal Medicine Pulmonary Disease; ATTEND Internal Medicine Nephrology
PROC: 5A1935Z Respiratory Ventilation, Less than 24 Consecutive Hours (ICD-10-PCS; principal; 2023-04-09)
PROC: 0BH17EZ Insertion of Endotracheal Airway into Trachea, Via Natural or Artificial Opening (ICD-10-PCS; 2023-04-09)
DX: J96.00 Acute respiratory failure, unspecified whether with hypoxia or hypercapnia (principal); N17.9 Acute kidney failure, unspecified; E87.3 Alkalosis; N18.30 Chronic kidney disease, stage 3 unspecified; R33.9 Retention of urine, unspecified; I12.9 Hypertensive chronic kidney disease with stage 1 through stage 4 chronic kidney disease, or unspecified chronic kidney disease; R41.0 Disorientation, unspecified; E78.5 Hyperlipidemia, unspecified; R73.03 Prediabetes; F03.90 Unspecified dementia, unspecified severity, without behavioral disturbance, psychotic disturbance, mood disturbance, and anxiety; Z85.46 Personal history of malignant neoplasm of prostate; Z85.820 Personal history of malignant melanoma of skin; Z85.828 Personal history of other malignant neoplasm of skin; Z90.49 Acquired absence of other specified parts of digestive tract; Z98.49 Cataract extraction status, unspecified eye; Z79.82 Long term (current) use of aspirin; Z79.899 Other long term (current) drug therapy; Z87.820 Personal history of traumatic brain injury

== ENCOUNTER 2023-04-11 19:16 | Inpatient (IN) | payer MEDICARE ==
[~2023-04-11] VITALS: Ht 170.2 cm; Wt 74.2 kg
[~2023-04-11 19:16] MED LIST changes: +ACET650T61 PO; +QUET1TAB17 PO
[2023-04-11] MEDS ORDERED: NS 1,000 ML IV ONE (20:00)
[2023-04-11] MEDS ORDERED: ACETAMINOPHEN TAB 650MG DOSE (2X325MG) PO ONE (20:00)
[2023-04-11 20:16] LABS: BASO % 0.3 % (0.0-1.0); EOS % 0.2 % (0.0-3.0); HEMATOCRIT 37.5 % (42.0-52.0); HEMOGLOBIN 12.3 g/dl (13.5-17.5); LYMPH # 0.9 10^3/uL (1.5-5.0); LYMPH % 7.2 % (24.0-44.0); MEAN CORPUSCULAR HEMOGLOBIN 32.5 pg (27.0-33.0); MEAN CORPUSCULAR HGB CONC 32.8 g/dl (32.0-36.5); MEAN CORPUSCULAR VOLUME 99.2 fl (80.0-96.0); MONO # 1.1 10^3/uL (0.0-0.8); MONO % 8.8 % (2.0-8.0); NEUTROPHILS # 10.7 10^3/uL (1.5-8.5); NEUTROPHILS % 83.2 % (36.0-66.0); PLATELET COUNT, AUTOMATED 200 10^3/uL (150-450); RED BLOOD COUNT 3.78 10^6/uL (4.30-6.10); WHITE BLOOD COUNT 12.9 10^3/uL (4.0-10.0)
[2023-04-11 20:37] LABS: ETHYL ALCOHOL (ETHANOL) < 0.003 % (0.000-0.010)
[2023-04-11 20:39] LABS: ACETAMINOPHEN LEVEL 9.9 UG/ML (10.0-20.0); ALBUMIN 3.4 G/DL (3.2-5.2); ALKALINE PHOSPHATASE 69 U/L (46-116); ALT/SGPT 16 U/L (7.0-40); AST/SGOT 24 U/L (<34); BILIRUBIN,DIRECT 0.1 MG/DL (<0.4); BILIRUBIN,TOTAL 0.3 MG/DL (0.3-1.2); BLOOD UREA NITROGEN 23 MG/DL (9-23); CALCIUM LEVEL 7.9 MG/DL (8.3-10.6); CARBON DIOXIDE LEVEL 26 MMOL/L (20-31); CHLORIDE LEVEL 106 MMOL/L (98-107); CREATININE FOR GFR 1.36 MG/DL (0.70-1.30); GLOMERULAR FILTRATION RATE 52.8 (>35); GLUCOSE, FASTING 214 MG/DL (74-106); POTASSIUM SERUM 3.9 MMOL/L (3.5-5.1); SALICYLATE LEVEL 3.4 MG/DL (<30); SODIUM LEVEL 142 MMOL/L (136-145); TOTAL PROTEIN 5.9 G/DL (5.7-8.2)
[2023-04-11 20:41] LABS: THYROID STIMULATING HORMONE 0.657 uIU/ML (0.55-4.78)
[2023-04-11 20:51] LABS: RSV AMPLIFICATION NEGATIVE (NEGATIVE)
[2023-04-11] MEDS ORDERED: cefTRIAXone SOD 1 GM in D5W MINI-BAG PLUS 50 ML IV ONE (23:05)
[2023-04-11 23:08] LABS: AMPHETAMINES LEVEL URINE NEGATIVE (NEGATIVE); BARBITURATES URINE NEGATIVE (NEGATIVE); BENZODIAZEPINES URINE NEGATIVE (NEGATIVE); COCAINE METABOLITE URINE NEGATIVE (NEGATIVE); METHADONE URINE NEGATIVE (NEGATIVE)
[2023-04-11 23:09] LABS: CANNABINOIDS URINE NEGATIVE (NEGATIVE); OPIATES URINE NEGATIVE (NEGATIVE); PHENCYCLIDINE URINE NEGATIVE (NEGATIVE)
[2023-04-12] MEDS ORDERED: QUET1TAB17 PO (00:13)
[2023-04-12] MEDS ORDERED: MELO15TA28 PO (00:13)
[2023-04-12] MEDS ORDERED: DOCU100C16 PO (00:13)
[2023-04-12 00:15] VITALS: BP 148/69
[2023-04-12] MEDS ORDERED: HOME MED LIST COMPLETE! XX SCH (00:15)
[2023-04-12] MEDS ORDERED: ACETAMINOPHEN TAB 650MG DOSE (2X325MG) PO PRN ×2 (01:10→07:10)
[2023-04-12] MEDS ORDERED: GLUCOSE 4GM CHEW TABLET PO PRN (01:10)
[2023-04-12] MEDS ORDERED: DEXTROSE 50% 50ML SYRINGE IV PRN (01:10)
[2023-04-12] MEDS ORDERED: HYDROMORPHONE HCL 0.5 MG/ 0.5 ML SYRINGE IV PRN (01:10)
[2023-04-12] MEDS ORDERED: GLUCAGON INJ 1MG VIAL SC PRN (01:10)
[2023-04-12] MEDS ORDERED: COLCHICINE 0.6 MG TABLET PO ONE (02:00)
[2023-04-12 03:37] VITALS: BP 146/71
[2023-04-12 06:17] LABS: BLOOD UREA NITROGEN 20 MG/DL (9-23); CALCIUM LEVEL 7.5 MG/DL (8.3-10.6); CARBON DIOXIDE LEVEL 25 MMOL/L (20-31); CHLORIDE LEVEL 109 MMOL/L (98-107); CREATININE FOR GFR 1.13 MG/DL (0.70-1.30); GLOMERULAR FILTRATION RATE > 60.0 (>35); GLUCOSE, FASTING 149 MG/DL (74-106); MAGNESIUM LEVEL 1.8 MG/DL (1.8-2.4); POTASSIUM SERUM 3.6 MMOL/L (3.5-5.1); SODIUM LEVEL 143 MMOL/L (136-145)
[2023-04-12] MEDS: INSULIN LISPRO (NovoLOG) PER UNIT SC SCH ×3 (07:30→17:53)
[2023-04-12 07:34] VITALS: BP 158/74
[2023-04-12] MEDS: ACETAMINOPHEN TAB 650MG DOSE (2X325MG) PO SCH ×2 (08:51→21:26)
[2023-04-12] MEDS: HEPARIN SOD (PORCINE) 5000UNITS/ML 1ML VIAL/SYRINGE SC SCH ×2 (08:51→21:25)
[2023-04-12 11:59] VITALS: BP 120/76
[2023-04-12 15:47] VITALS: BP 127/58
[2023-04-12 20:30] VITALS: BP 135/63
[2023-04-12] MEDS ORDERED: INSULIN LISPRO (NovoLOG) PER UNIT SC SCH (21:00)
[2023-04-12] MEDS: QUEtiapine FUMARATE 25 MG TAB PO PRN (21:26)
[2023-04-12] MEDS: IBUPROFEN 600MG TAB PO PRN (22:17)
[2023-04-13 00:15] VITALS: BP 125/62
[2023-04-13] MEDS: cefTRIAXone SOD 1 GM in D5W MINI-BAG PLUS 50 ML IV SCH (00:29)
[2023-04-13 06:00] VITALS: BP 117/57
[2023-04-13] MEDS ORDERED: LIDOCAINE 2% 5ML JELLY UROJET TOP PRN (06:45)
[2023-04-13] MEDS: INSULIN LISPRO (NovoLOG) PER UNIT SC SCH ×3 (07:35→17:21)
[2023-04-13 08:07] LABS: BASO % 0.4 % (0.0-1.0); EOS # 0.4 10^3/uL (0.0-0.5); EOS % 5.3 % (0.0-3.0); HEMATOCRIT 35.3 % (42.0-52.0); HEMOGLOBIN 11.5 g/dl (13.5-17.5); LYMPH # 1.3 10^3/uL (1.5-5.0); LYMPH % 15.8 % (24.0-44.0); MEAN CORPUSCULAR HEMOGLOBIN 32.2 pg (27.0-33.0); MEAN CORPUSCULAR HGB CONC 32.6 g/dl (32.0-36.5); MEAN CORPUSCULAR VOLUME 98.9 fl (80.0-96.0); MONO # 0.9 10^3/uL (0.0-0.8); MONO % 10.7 % (2.0-8.0); NEUTROPHILS # 5.4 10^3/uL (1.5-8.5); NEUTROPHILS % 67.4 % (36.0-66.0); PLATELET COUNT, AUTOMATED 189 10^3/uL (150-450); RED BLOOD COUNT 3.57 10^6/uL (4.30-6.10); WHITE BLOOD COUNT 7.9 10^3/uL (4.0-10.0)
[2023-04-13] MEDS: HEPARIN SOD (PORCINE) 5000UNITS/ML 1ML VIAL/SYRINGE SC SCH ×2 (08:43→20:41)
[2023-04-13] MEDS: ACETAMINOPHEN TAB 650MG DOSE (2X325MG) PO SCH ×2 (08:45→20:40)
[2023-04-13 14:00] VITALS: BP 108/55
[2023-04-13] MEDS ORDERED: oxyBUTYnin 5 MG TAB PO PRN (18:05)
[2023-04-13 21:00] VITALS: BP 149/87
[2023-04-13 21:20] VITALS: BP 149/87
[2023-04-14] MEDS: IBUPROFEN 600MG TAB PO PRN ×2 (00:19→13:10)
[2023-04-14] MEDS: cefTRIAXone SOD 1 GM in D5W MINI-BAG PLUS 50 ML IV SCH ×2 (00:20→23:20)
[2023-04-14] MEDS: QUEtiapine FUMARATE 25 MG TAB PO PRN (00:52)
[2023-04-14 05:48] VITALS: BP 148/77
[2023-04-14 06:27] LABS: BASO % 0.5 % (0.0-1.0); EOS # 0.5 10^3/uL (0.0-0.5); HEMATOCRIT 30.8 % (42.0-52.0); HEMOGLOBIN 10.3 g/dl (13.5-17.5); LYMPH # 2.2 10^3/uL (1.5-5.0); LYMPH % 36.6 % (24.0-44.0); MEAN CORPUSCULAR HEMOGLOBIN 32.7 pg (27.0-33.0); MEAN CORPUSCULAR HGB CONC 33.4 g/dl (32.0-36.5); MEAN CORPUSCULAR VOLUME 97.8 fl (80.0-96.0); MONO # 0.8 10^3/uL (0.0-0.8); MONO % 13.4 % (2.0-8.0); NEUTROPHILS # 2.4 10^3/uL (1.5-8.5); NEUTROPHILS % 40.2 % (36.0-66.0); PLATELET COUNT, AUTOMATED 190 10^3/uL (150-450); RED BLOOD COUNT 3.15 10^6/uL (4.30-6.10); WHITE BLOOD COUNT 5.9 10^3/uL (4.0-10.0)
[2023-04-14 06:58] LABS: CALCIUM LEVEL 7.6 MG/DL (8.3-10.6); CREATININE FOR GFR 1.29 MG/DL (0.70-1.30); GLOMERULAR FILTRATION RATE 56.1 (>35); POTASSIUM SERUM 3.3 MMOL/L (3.5-5.1)
[2023-04-14] MEDS ORDERED: POTASSIUM CHLORIDE 10MEQ SR TABLET PO ONE (07:30)
[2023-04-14] MEDS: ACETAMINOPHEN TAB 650MG DOSE (2X325MG) PO SCH ×2 (09:06→20:12)
[2023-04-14] MEDS: HEPARIN SOD (PORCINE) 5000UNITS/ML 1ML VIAL/SYRINGE SC SCH ×2 (09:07→20:12)
[2023-04-14 14:00] VITALS: BP 136/68
[2023-04-14 20:30] VITALS: BP 132/65
[2023-04-15 04:40] VITALS: BP 140/65
[2023-04-15 06:22] LABS: BASO # 0.1 10^3/uL (0.0-0.2); EOS # 0.7 10^3/uL (0.0-0.5); EOS % 10.8 % (0.0-3.0); HEMATOCRIT 31.1 % (42.0-52.0); HEMOGLOBIN 10.2 g/dl (13.5-17.5); LYMPH # 1.8 10^3/uL (1.5-5.0); LYMPH % 30.5 % (24.0-44.0); MEAN CORPUSCULAR HEMOGLOBIN 31.9 pg (27.0-33.0); MEAN CORPUSCULAR HGB CONC 32.8 g/dl (32.0-36.5); MEAN CORPUSCULAR VOLUME 97.2 fl (80.0-96.0); MONO # 0.7 10^3/uL (0.0-0.8); MONO % 10.8 % (2.0-8.0); NEUTROPHILS # 2.8 10^3/uL (1.5-8.5); NEUTROPHILS % 46.4 % (36.0-66.0); PLATELET COUNT, AUTOMATED 212 10^3/uL (150-450)
[2023-04-15 06:54] LABS: BLOOD UREA NITROGEN 22 MG/DL (9-23); CARBON DIOXIDE LEVEL 27 MMOL/L (20-31); CHLORIDE LEVEL 111 MMOL/L (98-107); CREATININE FOR GFR 1.14 MG/DL (0.70-1.30); GLOMERULAR FILTRATION RATE > 60.0 (>35); GLUCOSE, FASTING 123 MG/DL (74-106); POTASSIUM SERUM 3.9 MMOL/L (3.5-5.1); SODIUM LEVEL 143 MMOL/L (136-145)
[2023-04-15] MEDS: LINEZOLID 600MG TABLET (ZYVOX) PO SCH ×2 (09:40→20:08)
[2023-04-15] MEDS: HEPARIN SOD (PORCINE) 5000UNITS/ML 1ML VIAL/SYRINGE SC SCH ×2 (09:41→20:07)
[2023-04-15] MEDS: ACETAMINOPHEN TAB 650MG DOSE (2X325MG) PO SCH ×2 (09:42→20:08)
[2023-04-15] MEDS ORDERED: QUEtiapine FUMARATE 12.5 MG HALF-TAB PO SCH (17:00)
[2023-04-16 05:30] VITALS: BP 139/74
[2023-04-16] MEDS ORDERED: FAMOTIDINE 20 MG TAB PO SCH (09:00)
[2023-04-16] MEDS: LINEZOLID 600MG TABLET (ZYVOX) PO SCH (09:43)
[2023-04-16] MEDS: ACETAMINOPHEN TAB 650MG DOSE (2X325MG) PO SCH (09:44)
[2023-04-16] MEDS: HEPARIN SOD (PORCINE) 5000UNITS/ML 1ML VIAL/SYRINGE SC SCH (09:44)
[2023-04-16] MEDS ORDERED: QUET1TAB17 PO (12:00)
[2023-04-16] MEDS ORDERED: OXYB5TAB10 PO (12:00)
[2023-04-16] MEDS ORDERED: LINE1TAB6 PO (12:00)
[2023-04-16] MEDS ORDERED: PROBCAP14 PO (12:00)
[2023-04-16] MEDS ORDERED: FAMO20TA PO (12:00)
[2023-04-16] MEDS ORDERED: QUEtiapine FUMARATE 12.5 MG HALF-TAB PO SCH (19:00)
== END 2023-04-16 12:56 | disposition home health service (06) | DRG 698 ==
LOC: M ED 19:16 → M ED INP 23:17 → M PCU 04-12 00:18 → M MSPAV 04-13 00:11
PROVIDERS: ADMIT Internal Medicine; ATTEND Internal Medicine Nephrology
PROC: 0T9B80Z Drainage of Bladder with Drainage Device, Via Natural or Artificial Opening Endoscopic (ICD-10-PCS; principal; 2023-04-13)
DX: T83.511A Infection and inflammatory reaction due to indwelling urethral catheter, initial encounter (principal); G93.41 Metabolic encephalopathy; E87.3 Alkalosis; I12.9 Hypertensive chronic kidney disease with stage 1 through stage 4 chronic kidney disease, or unspecified chronic kidney disease; M25.551 Pain in right hip; M16.11 Unilateral primary osteoarthritis, right hip; N18.30 Chronic kidney disease, stage 3 unspecified; R26.89 Other abnormalities of gait and mobility; R73.9 Hyperglycemia, unspecified; R53.81 Other malaise; F03.90 Unspecified dementia, unspecified severity, without behavioral disturbance, psychotic disturbance, mood disturbance, and anxiety; R53.1 Weakness; R33.9 Retention of urine, unspecified; Y84.6 Urinary catheterization as the cause of abnormal reaction of the patient, or of later complication, without mention of misadventure at the time of the procedure; Z85.46 Personal history of malignant neoplasm of prostate; Z79.899 Other long term (current) drug therapy; Z85.820 Personal history of malignant melanoma of skin; Z87.820 Personal history of traumatic brain injury; Z85.828 Personal history of other malignant neoplasm of skin

== ENCOUNTER → 2023-04-24 | Outpatient (CLI) | payer MEDICARE ==
[~2023-04-24] MED LIST changes: +DOCU100C16 PO; +FAMO20TA PO; +LINE1TAB6 PO; +MELO15TA28 PO; +OXYB5TAB10 PO; +PROBCAP14 PO
[2023-04-24 18:19] LABS: ALBUMIN 3.8 G/DL (3.2-5.2); ALKALINE PHOSPHATASE 62 U/L (46-116); ALT/SGPT 31 U/L (7.0-40); AST/SGOT 16 U/L (<34); BILIRUBIN,TOTAL 0.3 MG/DL (0.3-1.2); BLOOD UREA NITROGEN 18 MG/DL (9-23); CALCIUM LEVEL 8.8 MG/DL (8.3-10.6); CARBON DIOXIDE LEVEL 30 MMOL/L (20-31); CHLORIDE LEVEL 107 MMOL/L (98-107); CHOLESTEROL LEVEL 143 MG/DL (<200); CHOLESTEROL RISK RATIO 3.14 (<5); CREATININE FOR GFR 1.19 MG/DL (0.70-1.30); GLOMERULAR FILTRATION RATE > 60.0 (>35); GLUCOSE, FASTING 86 MG/DL (74-106); HDL CHOLESTEROL 45.4 MG/DL (>40); LDL CHOLESTEROL 73.6 MG/DL (<100); NON-HDL-C 97.6 MG/DL; SODIUM LEVEL 143 MMOL/L (136-145); TOTAL PROTEIN 6.4 G/DL (5.7-8.2); TRIGLYCERIDES LEVEL 120 MG/DL (<150)
[2023-04-24 18:20] LABS: HEMATOCRIT 38.1 % (42.0-52.0); HEMOGLOBIN 11.9 g/dl (13.5-17.5); HEMOGLOBIN A1c 6.3 % (4.0-6.0); MEAN CORPUSCULAR HEMOGLOBIN 31.6 pg (27.0-33.0); MEAN CORPUSCULAR HGB CONC 31.2 g/dl (32.0-36.5); MEAN CORPUSCULAR VOLUME 101.3 fl (80.0-96.0); PLATELET COUNT, AUTOMATED 262 10^3/uL (150-450); RED BLOOD COUNT 3.76 10^6/uL (4.30-6.10); WHITE BLOOD COUNT 6.8 10^3/uL (4.0-10.0)
[2023-04-24 18:24] LABS: THYROID STIMULATING HORMONE 0.948 uIU/ML (0.55-4.78)
[2023-04-24 18:27] LABS: C REACTIVE PROTEIN QUANTITATIV < 0.40 MG/DL (<1.0)
[2023-04-24 18:29] LABS: TOTAL 25(OH) VITAMIN D 35.4 NG/ML (20.0-100.0)
[2023-04-24 18:30] LABS: VITAMIN B12 LEVEL 513 PG/ML (211-911)
== END ==
LOC: M PLALAB 15:58
PROVIDERS: ATTEND Internal Medicine Hematology
DX: E78.00 Pure hypercholesterolemia, unspecified (principal); Z79.899 Other long term (current) drug therapy

== ENCOUNTER → 2023-04-27 | Outpatient (CLI) | payer MEDICARE | LOC: M SLEEP 10:02 | PROVIDERS: ATTEND Internal Medicine Nephrology | DX: R56.9 Unspecified convulsions (principal) ==

== ENCOUNTER → 2023-06-29 | Outpatient (CLI) | payer MEDICARE ==
[2023-06-29 14:04] LABS: HEMATOCRIT 43.5 % (42.0-52.0); HEMOGLOBIN 13.9 g/dl (13.5-17.5); MEAN CORPUSCULAR HEMOGLOBIN 31.4 pg (27.0-33.0); MEAN CORPUSCULAR VOLUME 98.4 fl (80.0-96.0); PLATELET COUNT, AUTOMATED 193 10^3/uL (150-450); RED BLOOD COUNT 4.42 10^6/uL (4.30-6.10); WHITE BLOOD COUNT 6.8 10^3/uL (4.0-10.0)
[2023-06-29 14:28] LABS: PERCENT SATURATION 15.4 % (19.7-50.0)
[2023-06-29 14:32] LABS: FERRITIN 51.5 NG/ML (10.5-307.3)
[2023-06-29 14:33] LABS: FOLATE 13.24 NG/ML (>5.4)
== END ==
LOC: M PLALAB 09:42
PROVIDERS: ATTEND Internal Medicine Hematology
DX: D64.9 Anemia, unspecified (principal)

== ENCOUNTER → 2023-11-24 | Outpatient (CLI) | payer MEDICARE ==
[~2023-11-24] MED LIST changes: -OXYB5TAB10 PO; +OXYB5TAB11 PO
[2023-11-24 13:58] LABS: HEMATOCRIT 40.1 % (42.0-52.0); HEMOGLOBIN 12.9 g/dl (13.5-17.5); MEAN CORPUSCULAR HEMOGLOBIN 31.9 pg (27.0-33.0); MEAN CORPUSCULAR HGB CONC 32.2 g/dl (32.0-36.5); MEAN CORPUSCULAR VOLUME 99.3 fl (80.0-96.0); PLATELET COUNT, AUTOMATED 240 10^3/uL (150-450); RED BLOOD COUNT 4.04 10^6/uL (4.30-6.10); WHITE BLOOD COUNT 6.2 10^3/uL (4.0-10.0)
[2023-11-24 14:07] LABS: HEMOGLOBIN A1c 6.4 % (4.0-6.0)
[2023-11-24 14:30] LABS: ALBUMIN 4.3 G/DL (3.2-5.2); BILIRUBIN,TOTAL 0.5 MG/DL (0.3-1.2); CALCIUM LEVEL 9.3 MG/DL (8.3-10.6); CREATININE FOR GFR 1.25 MG/DL (0.70-1.30); GLOMERULAR FILTRATION RATE 58.2 (>35); POTASSIUM SERUM 4.3 MMOL/L (3.5-5.1); TOTAL PROTEIN 6.9 G/DL (5.7-8.2)
[2023-11-24 14:32] LABS: THYROID STIMULATING HORMONE 1.3 uIU/ML (0.55-4.78)
[2023-11-24 14:41] LABS: CREATININE, URINE 290.8 MG/DL; MAU/CREAT RATIO 4.1 MCG/MG (0.0-30.0)
== END ==
LOC: M PLALAB 09:33
PROVIDERS: ATTEND Internal Medicine Hematology
DX: D64.89 Other specified anemias (principal); R73.01 Impaired fasting glucose; Z86.39 Personal history of other endocrine, nutritional and metabolic disease

== ENCOUNTER 2023-12-25 13:34 | Inpatient (IN) | payer MEDICARE ==
[~2023-12-25] VITALS: Ht 172.7 cm; Wt 74.4 kg
[~2023-12-25 13:34] MED LIST changes: -OXYB5TAB11 PO; +OXYB5TAB14 PO
[2023-12-25 16:47] LABS: BASO % 0.3 % (0.0-1.0); EOS # 0.1 10^3/uL (0.0-0.5); EOS % 0.4 % (0.0-3.0); HEMOGLOBIN 11.5 g/dl (13.5-17.5); LYMPH # 1.7 10^3/uL (1.5-5.0); LYMPH % 12.2 % (24.0-44.0); MEAN CORPUSCULAR HEMOGLOBIN 31.9 pg (27.0-33.0); MEAN CORPUSCULAR HGB CONC 31.9 g/dl (32.0-36.5); MEAN CORPUSCULAR VOLUME 99.7 fl (80.0-96.0); MONO # 0.7 10^3/uL (0.0-0.8); MONO % 4.7 % (2.0-8.0); NEUTROPHILS # 11.6 10^3/uL (1.5-8.5); NEUTROPHILS % 82.1 % (36.0-66.0); PLATELET COUNT, AUTOMATED 244 10^3/uL (150-450); RED BLOOD COUNT 3.61 10^6/uL (4.30-6.10); WHITE BLOOD COUNT 14.1 10^3/uL (4.0-10.0)
[2023-12-25 18:24] LABS: LIPASE 22 U/L (12-53)
[2023-12-25 18:25] LABS: ETHYL ALCOHOL (ETHANOL) < 0.003 % (0.000-0.010)
[2023-12-25 18:27] LABS: ALKALINE PHOSPHATASE 68 U/L (46-116); ALT/SGPT 16 U/L (7.0-40); AST/SGOT 13 U/L (<34); BILIRUBIN,DIRECT 0.2 MG/DL (<0.4); BILIRUBIN,TOTAL 0.4 MG/DL (0.3-1.2); BLOOD UREA NITROGEN 34 MG/DL (9-23); CALCIUM LEVEL 9.4 MG/DL (8.3-10.6); CARBON DIOXIDE LEVEL 25 MMOL/L (20-31); CHLORIDE LEVEL 109 MMOL/L (98-107); CK-MB VALUE MASS < 1.0 NG/ML (<3.6); CPK CREATINE PHOSPHOKINASE 84 U/L (46-171); CREATININE FOR GFR 1.23 MG/DL (0.70-1.30); GLOMERULAR FILTRATION RATE 59.3 (>35); GLUCOSE, FASTING 130 MG/DL (74-106); MB/CK RELATIVE INDEX 1.19 (< OR =4); POTASSIUM SERUM 4.6 MMOL/L (3.5-5.1); SODIUM LEVEL 142 MMOL/L (136-145); TOTAL PROTEIN 6.7 G/DL (5.7-8.2)
[2023-12-25] MEDS ORDERED: ISOVUE-370 76% 100ML VIAL As Ordered ONE (18:37)
[2023-12-25] MEDS: NS 1,000 ML IV ONE (18:41)
[2023-12-25] MEDS: PIPERACILLIN/TAZOBACTAM SOD 3.375 GM in D5W MINI-BAG PLUS 50 ML IV ONE (21:12)
[2023-12-25] MEDS ORDERED: MULT-40 PO (21:30)
[2023-12-25] MEDS ORDERED: HYDR12CA PO (21:30)
[2023-12-25] MEDS ORDERED: FERR1TAB8 PO (21:30)
[2023-12-25] MEDS ORDERED: HOME MED LIST COMPLETE! XX SCH (21:30)
[2023-12-25] MEDS ORDERED: LISI10TA22 PO (21:30)
[2023-12-25 21:59] LABS: RSV AMPLIFICATION NEGATIVE (NEGATIVE)
[2023-12-25] MEDS ORDERED: HYDROMORPHONE HCL 0.5 MG/ 0.5 ML SYRINGE IV PRN (22:45)
[2023-12-25] MEDS ORDERED: ONDANSETRON 4MG 2ML VIAL IV PRN (22:45)
[2023-12-25 23:30] VITALS: BP 165/82; TEMP 98.3; O2SAT 97
[2023-12-26] MEDS: LR 1,000 ML IV SCH (00:29)
[2023-12-26] MEDS: NS 1,000 ML IV SCH (01:45)
[2023-12-26] MEDS: PIPERACILLIN/TAZOBACTAM SOD 4.5 GM in D5W MINI-BAG PLUS 50 ML IV SCH (01:59)
[2023-12-26 04:19] VITALS: BP 163/78; TEMP 98.1; O2SAT 96
[2023-12-26 06:43] LABS: HEMATOCRIT 28.8 % (42.0-52.0); HEMOGLOBIN 9.6 g/dl (13.5-17.5)
[2023-12-26 07:18] LABS: BLOOD UREA NITROGEN 27 MG/DL (9-23); CALCIUM LEVEL 7.9 MG/DL (8.3-10.6); CARBON DIOXIDE LEVEL 26 MMOL/L (20-31); CHLORIDE LEVEL 110 MMOL/L (98-107); CREATININE FOR GFR 1.13 MG/DL (0.70-1.30); GLOMERULAR FILTRATION RATE > 60.0 (>35); GLUCOSE, FASTING 106 MG/DL (74-106); SODIUM LEVEL 142 MMOL/L (136-145)
[2023-12-26 07:57] VITALS: BP 148/72; TEMP 97.4; O2SAT 96
[2023-12-26 08:12] LABS: BASO % 0.4 % (0.0-1.0); EOS # 0.3 10^3/uL (0.0-0.5); EOS % 3.3 % (0.0-3.0); HEMATOCRIT 28.5 % (42.0-52.0); HEMOGLOBIN 9.4 g/dl (13.5-17.5); LYMPH # 2.1 10^3/uL (1.5-5.0); LYMPH % 21.5 % (24.0-44.0); MEAN CORPUSCULAR HEMOGLOBIN 32.3 pg (27.0-33.0); MEAN CORPUSCULAR VOLUME 97.9 fl (80.0-96.0); MONO # 0.8 10^3/uL (0.0-0.8); MONO % 8.3 % (2.0-8.0); NEUTROPHILS # 6.5 10^3/uL (1.5-8.5); NEUTROPHILS % 66.2 % (36.0-66.0); PLATELET COUNT, AUTOMATED 211 10^3/uL (150-450); RED BLOOD COUNT 2.91 10^6/uL (4.30-6.10); WHITE BLOOD COUNT 9.9 10^3/uL (4.0-10.0)
[2023-12-26 09:08] LABS: INR 1.24; PROTHROMBIN TIME 15.2 SECONDS (12.5-14.5)
[2023-12-26 09:09] LABS: PARTIAL THROMBOPLASTIN TIME 31.1 SECONDS (24.8-34.2)
[2023-12-26] MEDS: hydroCHLOROthiazide 12.5 MG CAPSULE PO SCH (11:40)
[2023-12-26 12:10] LABS: C REACTIVE PROTEIN QUANTITATIV < 0.40 MG/DL (<1.0)
[2023-12-26 15:59] LABS: PROCALCITONIN <0.04 ng/ml
[2023-12-26 16:04] VITALS: BP 123/60; TEMP 97.9; O2SAT 98
[2023-12-26 19:50] VITALS: BP 132/68; TEMP 98.8; O2SAT 98
[2023-12-27] MEDS: HALOPERIDOL 5MG/ML 1ML VIAL IM PRN (03:03)
[2023-12-27 06:00] VITALS: BP 130/52; TEMP 97.5; O2SAT 99
[2023-12-27 06:32] LABS: BASO # 0.1 10^3/uL (0.0-0.2); BASO % 0.5 % (0.0-1.0); EOS # 0.4 10^3/uL (0.0-0.5); HEMATOCRIT 28.6 % (42.0-52.0); HEMOGLOBIN 9.6 g/dl (13.5-17.5); LYMPH # 2.2 10^3/uL (1.5-5.0); LYMPH % 23.1 % (24.0-44.0); MEAN CORPUSCULAR HEMOGLOBIN 32.4 pg (27.0-33.0); MEAN CORPUSCULAR HGB CONC 33.6 g/dl (32.0-36.5); MEAN CORPUSCULAR VOLUME 96.6 fl (80.0-96.0); MONO # 0.8 10^3/uL (0.0-0.8); MONO % 7.8 % (2.0-8.0); NEUTROPHILS # 6.2 10^3/uL (1.5-8.5); NEUTROPHILS % 64.4 % (36.0-66.0); PLATELET COUNT, AUTOMATED 200 10^3/uL (150-450); RED BLOOD COUNT 2.96 10^6/uL (4.30-6.10); WHITE BLOOD COUNT 9.6 10^3/uL (4.0-10.0)
[2023-12-27 07:06] LABS: BLOOD UREA NITROGEN 15 MG/DL (9-23); CALCIUM LEVEL 7.8 MG/DL (8.3-10.6); CARBON DIOXIDE LEVEL 28 MMOL/L (20-31); CHLORIDE LEVEL 111 MMOL/L (98-107); CREATININE FOR GFR 1.16 MG/DL (0.70-1.30); GLOMERULAR FILTRATION RATE > 60.0 (>35); GLUCOSE, FASTING 124 MG/DL (74-106); POTASSIUM SERUM 3.7 MMOL/L (3.5-5.1); SODIUM LEVEL 143 MMOL/L (136-145)
[2023-12-27 14:51] VITALS: BP 132/61; TEMP 97.9; O2SAT 96
[2023-12-27] MEDS: QUEtiapine FUMARATE 12.5 MG HALF-TAB PO SCH (19:44)
[2023-12-27 20:00] VITALS: BP 170/88; TEMP 98.1; O2SAT 98
[2023-12-27] MEDS: QUEtiapine FUMARATE 12.5 MG HALF-TAB PO ONE (22:31)
[2023-12-28 06:35] LABS: BASO % 0.4 % (0.0-1.0); EOS # 0.3 10^3/uL (0.0-0.5); EOS % 2.3 % (0.0-3.0); HEMATOCRIT 30.6 % (42.0-52.0); HEMOGLOBIN 10.2 g/dl (13.5-17.5); LYMPH # 1.9 10^3/uL (1.5-5.0); LYMPH % 17.7 % (24.0-44.0); MEAN CORPUSCULAR HEMOGLOBIN 32.1 pg (27.0-33.0); MEAN CORPUSCULAR HGB CONC 33.3 g/dl (32.0-36.5); MEAN CORPUSCULAR VOLUME 96.2 fl (80.0-96.0); MONO # 0.8 10^3/uL (0.0-0.8); MONO % 6.9 % (2.0-8.0); NEUTROPHILS # 7.9 10^3/uL (1.5-8.5); NEUTROPHILS % 72.3 % (36.0-66.0); PLATELET COUNT, AUTOMATED 225 10^3/uL (150-450); RED BLOOD COUNT 3.18 10^6/uL (4.30-6.10); WHITE BLOOD COUNT 10.9 10^3/uL (4.0-10.0)
[2023-12-28 07:18] LABS: BLOOD UREA NITROGEN 13 MG/DL (9-23); CALCIUM LEVEL 8.1 MG/DL (8.3-10.6); CARBON DIOXIDE LEVEL 27 MMOL/L (20-31); CHLORIDE LEVEL 112 MMOL/L (98-107); CREATININE FOR GFR 1.05 MG/DL (0.70-1.30); GLOMERULAR FILTRATION RATE > 60.0 (>35); GLUCOSE, FASTING 147 MG/DL (74-106); POTASSIUM SERUM 3.8 MMOL/L (3.5-5.1); SODIUM LEVEL 144 MMOL/L (136-145)
[2023-12-28] MEDS: LACTULOSE 20GM/30ML SYRUP UDC PO ONE (08:55)
[2023-12-28 08:57] VITALS: BP 132/66
[2023-12-28] MEDS ORDERED: MIRALAX *UNIT DOSE* 17GM PACKET PO PRN (12:25)
[2023-12-28] MEDS ORDERED: LACT10SO3 PO (13:20)
[2023-12-28] MEDS ORDERED: CELE1CAP99 PO (13:20)
[2023-12-28] MEDS ORDERED: FERR1TAB8 PO (13:20)
[2023-12-28] MEDS ORDERED: MIRA3350 PO (13:20)
[2023-12-28] MEDS: ACETAMINOPHEN 650MG ER TAB (TYLENOL ARTHRITIS) PO PRN (14:13)
[2023-12-28] MEDS ORDERED: QUEtiapine FUMARATE 25 MG TAB PO SCH (21:00)
== END 2023-12-28 14:45 | disposition home or self-care (01) | DRG 378 ==
LOC: M ED 13:34 → M ED INP 20:41 → M PCU 23:28 → M MS5PR 12-26 18:35
PROVIDERS: ADMIT Internal Medicine; ATTEND Internal Medicine
DX: K57.31 Diverticulosis of large intestine without perforation or abscess with bleeding (principal); F03.C11 Unspecified dementia, severe, with agitation; D62 Acute posthemorrhagic anemia; G93.49 Other encephalopathy; I10 Essential (primary) hypertension; R53.1 Weakness; D50.9 Iron deficiency anemia, unspecified; G89.29 Other chronic pain; K64.8 Other hemorrhoids; Z66 Do not resuscitate; Z85.828 Personal history of other malignant neoplasm of skin; Z90.49 Acquired absence of other specified parts of digestive tract; Z79.899 Other long term (current) drug therapy; Z85.820 Personal history of malignant melanoma of skin

== ENCOUNTER → 2024-01-12 | Outpatient (CLI) | payer MEDICARE ==
[~2024-01-12] MED LIST changes: +CELE1CAP99 PO; +FERR1TAB8 PO; +HYDR12CA PO; +LACT10SO3 PO; +LISI10TA22 PO; +MIRA3350 PO; +MULT-40 PO
[2024-01-12 18:03] LABS: HEMATOCRIT 33.6 % (42.0-52.0); MEAN CORPUSCULAR HEMOGLOBIN 32.8 pg (27.0-33.0); MEAN CORPUSCULAR HGB CONC 32.7 g/dl (32.0-36.5); MEAN CORPUSCULAR VOLUME 100.3 fl (80.0-96.0); PLATELET COUNT, AUTOMATED 286 10^3/uL (150-450); RED BLOOD COUNT 3.35 10^6/uL (4.30-6.10); WHITE BLOOD COUNT 6.7 10^3/uL (4.0-10.0)
== END ==
LOC: M PLALAB 14:56
PROVIDERS: ATTEND Family Medicine
DX: D64.9 Anemia, unspecified (principal)

== ENCOUNTER → 2024-05-21 | Outpatient (CLI) | payer MEDICARE ==
[~2024-05-21] MED LIST changes: +LIDO1PAD; +OMEP-173
[2024-05-21 13:20] LABS: BASO # 0.1 10^3/uL (0.0-0.2); BASO % 0.7 % (0.0-1.0); EOS # 0.3 10^3/uL (0.0-0.5); EOS % 4.6 % (0.0-3.0); HEMATOCRIT 37.7 % (42.0-52.0); HEMOGLOBIN 12.2 g/dl (13.5-17.5); LYMPH # 1.9 10^3/uL (1.5-5.0); LYMPH % 26.9 % (24.0-44.0); MEAN CORPUSCULAR HEMOGLOBIN 31.4 pg (27.0-33.0); MEAN CORPUSCULAR HGB CONC 32.4 g/dl (32.0-36.5); MEAN CORPUSCULAR VOLUME 97.2 fl (80.0-96.0); MONO # 0.5 10^3/uL (0.0-0.8); MONO % 6.9 % (2.0-8.0); NEUTROPHILS # 4.2 10^3/uL (1.5-8.5); NEUTROPHILS % 60.8 % (36.0-66.0); PLATELET COUNT, AUTOMATED 229 10^3/uL (150-450); RED BLOOD COUNT 3.88 10^6/uL (4.30-6.10)
[2024-05-21 13:25] LABS: ALBUMIN 4.1 G/DL (3.2-5.2); BILIRUBIN,TOTAL 0.5 MG/DL (0.3-1.2); CALCIUM LEVEL 9.6 MG/DL (8.3-10.6); CREATININE FOR GFR 1.32 MG/DL (0.70-1.30); GLOMERULAR FILTRATION RATE 54.5 (>35); PERCENT SATURATION 41.2 % (19.7-50.0); POTASSIUM SERUM 4.4 MMOL/L (3.5-5.1); TOTAL PROTEIN 6.7 G/DL (5.7-8.2)
[2024-05-21 13:26] LABS: FREE T4 1.11 NG/DL (0.89-1.76); THYROID STIMULATING HORMONE 0.629 uIU/ML (0.55-4.78)
[2024-05-21 13:27] LABS: TOTAL 25(OH) VITAMIN D 46.7 NG/ML (20.0-100.0)
[2024-05-21 13:47] LABS: HEMOGLOBIN A1c 6.3 % (4.0-6.0)
== END ==
LOC: M PLALAB 10:15
PROVIDERS: ATTEND Internal Medicine Hematology
DX: D64.9 Anemia, unspecified (principal); I10 Essential (primary) hypertension; Z79.899 Other long term (current) drug therapy

== ENCOUNTER 2024-05-25 14:54 | Emergency (ER) | payer MEDICARE ==
[~2024-05-25] VITALS: Ht 167.6 cm; Wt 72.3 kg
[~2024-05-25 14:54] MED LIST changes: -LIDO1PAD; -OMEP-173
[2024-05-25] MEDS ORDERED: OMEP-173 (15:09)
[2024-05-25] MEDS ORDERED: LIDO1PAD (15:09)
[2024-05-25] MEDS: BOOSTRIX VACCINE (TETANUS/DIPHTH/ACEL. PERTUSSIS) 0.5ML SYR IM.IMMUN ONE (15:43)
[2024-05-25 16:20] LABS: BASO # 0.1 10^3/uL (0.0-0.2); BASO % 0.4 % (0.0-1.0); EOS # 0.3 10^3/uL (0.0-0.5); EOS % 1.8 % (0.0-3.0); HEMATOCRIT 37.7 % (42.0-52.0); HEMOGLOBIN 12.3 g/dl (13.5-17.5); LYMPH # 2.1 10^3/uL (1.5-5.0); LYMPH % 13.4 % (24.0-44.0); MEAN CORPUSCULAR HEMOGLOBIN 31.9 pg (27.0-33.0); MEAN CORPUSCULAR HGB CONC 32.6 g/dl (32.0-36.5); MEAN CORPUSCULAR VOLUME 97.7 fl (80.0-96.0); MONO # 0.9 10^3/uL (0.0-0.8); MONO % 5.7 % (2.0-8.0); NEUTROPHILS # 12.5 10^3/uL (1.5-8.5); NEUTROPHILS % 78.4 % (36.0-66.0); PLATELET COUNT, AUTOMATED 230 10^3/uL (150-450); RED BLOOD COUNT 3.86 10^6/uL (4.30-6.10)
[2024-05-25] MEDS: NS 500 ML IV ONE (17:06)
[2024-05-25 17:23] LABS: CK-MB VALUE MASS 1.7 NG/ML (<3.6)
[2024-05-25 17:26] LABS: CREATININE FOR GFR 1.3 MG/DL (0.70-1.30); GLOMERULAR FILTRATION RATE 55.5 (>35); MB/CK RELATIVE INDEX 1.42 (< OR =4); POTASSIUM SERUM 4.6 MMOL/L (3.5-5.1)
[2024-05-25 18:35] LABS: MB/CK RELATIVE INDEX 1.41 (< OR =4)
[2024-05-25 20:15] VITALS: BP 155/68; TEMP 97; O2SAT 97
== END 2024-05-25 20:17 | disposition home or self-care (01) ==
LOC: M ED 14:54
DX: S01.01XA Laceration without foreign body of scalp, initial encounter (principal); Y92.9 Unspecified place or not applicable; Y93.9 Activity, unspecified; Y99.9 Unspecified external cause status; I44.7 Left bundle-branch block, unspecified; I10 Essential (primary) hypertension; E78.5 Hyperlipidemia, unspecified; E55.9 Vitamin D deficiency, unspecified; Z23 Encounter for immunization; Z79.1 Long term (current) use of non-steroidal anti-inflammatories (NSAID); Z79.810 Long term (current) use of selective estrogen receptor modulators (SERMs); Z79.899 Other long term (current) drug therapy

== ENCOUNTER → 2024-09-05 | Outpatient (REF) | payer MEDICARE, OTHER ==
[~2024-09-05] MED LIST changes: -LACT10SO3 PO; +LACT10SO94 PO; +LIDO1PAD; +OMEP-173
[2024-09-05 18:50] LABS: PERCENT SATURATION 42.4 % (19.7-50.0)
== END ==
LOC: M LAB REF 16:43
PROVIDERS: ATTEND Internal Medicine
DX: G30.1 Alzheimer's disease with late onset (principal); D50.9 Iron deficiency anemia, unspecified

== ENCOUNTER 2025-03-21 14:54 | Inpatient (IN) | payer MEDICARE ==
[~2025-03-21] VITALS: Ht 180.3 cm; Wt 74.3 kg
[2025-03-21] MEDS ORDERED: VARIBAR PUDDING 40% w/v 230ML TUBE As Ordered ONE (16:05)
[2025-03-21] MEDS ORDERED: E-Z-PAQUE 96% w/w SUSP 176GM BTL As Ordered ONE (16:06)
[2025-03-21] MEDS: NS (Normal Saline) 0.9% 1,000 ML IV SCH ×2 (16:06→19:26)
[2025-03-21] MEDS ORDERED: E-Z-HD 98% w/w 340GM SUSP BTL As Ordered ONE (16:06)
[2025-03-21] MEDS ORDERED: VARIBAR NECTAR 40% w/v 240ML SUSP BTL As Ordered ONE (16:06)
[2025-03-21] MEDS ORDERED: BARIUM SULFATE 700 MG TABLET As Ordered ONE (16:06)
[2025-03-21 16:17] LABS: VENOUS BASE EXCESS 0.6 (-2.0-2.0); VENOUS HCO3 26.6 MMOL/L (23.0-27.0); VENOUS O2 SATURATION 71.8 % (60.0-80.0); VENOUS PARTIAL PRESSURE CO2 48.2 mmHg (38.0-50.0); VENOUS PARTIAL PRESSURE O2 39.3 mmHg (30.0-50.0); VENOUS PH 7.359 UNITS (7.330-7.430); VENOUS STANDARD HCO3 24.4 MMOL/L
[2025-03-21 16:19] LABS: BASO % 0.2 % (0.0-1.0); EOS # 0.2 10^3/uL (0.0-0.5); EOS % 0.8 % (0.0-3.0); HEMATOCRIT 35.8 % (42.0-52.0); HEMOGLOBIN 11.5 g/dl (13.5-17.5); LYMPH # 1.3 10^3/uL (1.5-5.0); LYMPH % 7.2 % (24.0-44.0); MEAN CORPUSCULAR HEMOGLOBIN 30.8 pg (27.0-33.0); MEAN CORPUSCULAR HGB CONC 32.1 g/dl (32.0-36.5); MONO # 1.4 10^3/uL (0.0-0.8); NEUTROPHILS % 83.2 % (36.0-66.0); PLATELET COUNT, AUTOMATED 303 10^3/uL (150-450); RED BLOOD COUNT 3.73 10^6/uL (4.30-6.10)
[2025-03-21 16:41] LABS: CK-MB VALUE MASS < 1.0 NG/ML (<3.6)
[2025-03-21 16:42] LABS: ETHYL ALCOHOL (ETHANOL) 0.004 % (0.000-0.010)
[2025-03-21 16:44] LABS: SALICYLATE LEVEL < 3.0 MG/DL (<30)
[2025-03-21 16:46] LABS: THYROID STIMULATING HORMONE 0.875 uIU/ML (0.55-4.78)
[2025-03-21 16:47] LABS: OSMOLALITY SERUM 334 MOSM/KG (280-301)
[2025-03-21 16:49] LABS: ALBUMIN 2.7 G/DL (3.2-5.2); ALKALINE PHOSPHATASE 115 U/L (40-129); ALT/SGPT 21 U/L (7.0-40); AST/SGOT 21 U/L (<34); BILIRUBIN,DIRECT 0.1 MG/DL (<0.4); BILIRUBIN,TOTAL 0.3 MG/DL (0.3-1.2); BLOOD UREA NITROGEN 54 MG/DL (9-23); CARBON DIOXIDE LEVEL 29 MMOL/L (20-31); CHLORIDE LEVEL 106 MMOL/L (98-107); CPK CREATINE PHOSPHOKINASE 40 U/L (46-171); CREATININE FOR GFR 1.76 MG/DL (0.70-1.30); GLOMERULAR FILTRATION RATE 36.5 (>35); GLUCOSE, FASTING 402 MG/DL (74-106); POTASSIUM SERUM 4.3 MMOL/L (3.5-5.1); SODIUM LEVEL 144 MMOL/L (136-145); TOTAL PROTEIN 6.3 G/DL (5.7-8.2)
[2025-03-21] MEDS: cefTRIAXone SOD 1 GM in DEXTROSE 5% (D5W) ADV/MINI-BAG 50 ML IV ONE (17:09)
[2025-03-21] MEDS ORDERED: GLUCAGON INJ 1MG VIAL SC PRN (17:15)
[2025-03-21] MEDS ORDERED: GLUCOSE 4 GM CHEW PO PRN (17:15)
[2025-03-21] MEDS ORDERED: DEXTROSE 50% 50ML SYRINGE IV PRN (17:15)
[2025-03-21] MEDS ORDERED: REXU1TAB3 PO (17:39)
[2025-03-21] MEDS ORDERED: CELE100C PO (17:39)
[2025-03-21] MEDS ORDERED: ACET-683 PO (17:39)
[2025-03-21] MEDS ORDERED: OMEP-173 PO (17:39)
[2025-03-21] MEDS ORDERED: HOME MED LIST COMPLETE! XX SCH (17:40)
[2025-03-21 18:39] LABS: KETONE, URINE AUTO RFX NEGATIVE (NEGATIVE); LEUKOCYTE ESTERASE UR AUTO RFX NEGATIVE (NEGATIVE); NITRITE, URINE AUTO RFX NEGATIVE (NEGATIVE); RBC, URINE AUTO RFX 0 /HPF (0-3); SQUAM EPITHELIAL CELL UR AURFX 1 /HPF (0-6); WBC, URINE AUTO RFX 0 /HPF (0-3)
[2025-03-21] MEDS: INSULIN LISPRO (NovoLOG) PER UNIT SC SCH (20:10)
[2025-03-21] MEDS: OLANZapine ORAL DISINTEGRATING TAB 5MG PO SCH (20:25)
[2025-03-21] MEDS: PIPERACILLIN/TAZOBACTAM SOD 3.375 GM in DEXTROSE 5% (D5W) ADV/MINI-BAG 50 ML IV SCH (20:32)
[2025-03-21] MEDS ORDERED: BREXPIPRAZOLE 0.5MG TABLET PO SCH (21:00)
[2025-03-21] MEDS ORDERED: CELECOXIB 100 MG PO SCH (21:00)
[2025-03-22] MEDS: PANTOPRAZOLE 40MG VIAL IV SCH (09:00)
[2025-03-22 09:57] VITALS: BP 149/72; TEMP 98.4; O2SAT 94
[2025-03-22 12:00] VITALS: BP 154/75; TEMP 98.2; O2SAT 95
[2025-03-22 17:23] LABS: VENOUS HCO3 21.6 MMOL/L (23.0-27.0); VENOUS O2 SATURATION 99.3 % (60.0-80.0); VENOUS PARTIAL PRESSURE CO2 29.9 mmHg (38.0-50.0); VENOUS PARTIAL PRESSURE O2 227.7 mmHg (30.0-50.0); VENOUS PH 7.477 UNITS (7.330-7.430); VENOUS STANDARD HCO3 23.7 MMOL/L; VENOUS TOTAL CO2 22.5 MMOL/L (24.0-28.0)
[2025-03-22 17:27] LABS: BASO % 0.2 % (0.0-1.0); EOS % 0.1 % (0.0-3.0); HEMOGLOBIN 11.4 g/dl (13.5-17.5); LYMPH # 1.4 10^3/uL (1.5-5.0); LYMPH % 7.7 % (24.0-44.0); MEAN CORPUSCULAR HEMOGLOBIN 30.9 pg (27.0-33.0); MEAN CORPUSCULAR HGB CONC 31.7 g/dl (32.0-36.5); MEAN CORPUSCULAR VOLUME 97.6 fl (80.0-96.0); MONO # 1.5 10^3/uL (0.0-0.8); MONO % 8.2 % (2.0-8.0); NEUTROPHILS # 15.3 10^3/uL (1.5-8.5); NEUTROPHILS % 82.3 % (36.0-66.0); PLATELET COUNT, AUTOMATED 283 10^3/uL (150-450); RED BLOOD COUNT 3.69 10^6/uL (4.30-6.10); WHITE BLOOD COUNT 18.6 10^3/uL (4.0-10.0)
[2025-03-22 17:55] LABS: CALCIUM LEVEL 8.5 MG/DL (8.3-10.6); CREATININE FOR GFR 1.57 MG/DL (0.70-1.30); GLOMERULAR FILTRATION RATE 41.9 (>35)
[2025-03-22] MEDS: D5W 1,000 ML IV SCH (19:01)
[2025-03-22 19:28] VITALS: BP 154/75; TEMP 98.2; O2SAT 93
[2025-03-22 20:25] VITALS: BP 146/94; TEMP 98.6; O2SAT 92
[2025-03-23] VITALS (8 sets, daily range): BP systolic 149–170; BP diastolic 65–84; TEMP 97.6–101.2; O2SAT 92–98
[2025-03-23] MEDS: ACETAMINOPHEN *IV* 1,000 MG in IV 1 EA IV PRN (00:08)
[2025-03-23 06:52] LABS: HEMATOCRIT 33.1 % (42.0-52.0); HEMOGLOBIN 10.6 g/dl (13.5-17.5); MEAN CORPUSCULAR VOLUME 96.8 fl (80.0-96.0); PLATELET COUNT, AUTOMATED 310 10^3/uL (150-450); RED BLOOD COUNT 3.42 10^6/uL (4.30-6.10); WHITE BLOOD COUNT 19.2 10^3/uL (4.0-10.0)
[2025-03-23 07:19] LABS: CALCIUM LEVEL 8.2 MG/DL (8.3-10.6); CREATININE FOR GFR 1.75 MG/DL (0.70-1.30); GLOMERULAR FILTRATION RATE 36.8 (>35); POTASSIUM SERUM 3.9 MMOL/L (3.5-5.1)
[2025-03-24 03:36] VITALS: BP 166/71; TEMP 98.4; O2SAT 94
[2025-03-24 04:57] LABS: HEMATOCRIT 31.4 % (42.0-52.0); HEMOGLOBIN 10.1 g/dl (13.5-17.5); MEAN CORPUSCULAR HEMOGLOBIN 30.2 pg (27.0-33.0); MEAN CORPUSCULAR HGB CONC 32.2 g/dl (32.0-36.5); PLATELET COUNT, AUTOMATED 280 10^3/uL (150-450); RED BLOOD COUNT 3.34 10^6/uL (4.30-6.10); WHITE BLOOD COUNT 17.2 10^3/uL (4.0-10.0)
[2025-03-24 05:22] LABS: CALCIUM LEVEL 8.1 MG/DL (8.3-10.6); CREATININE FOR GFR 1.8 MG/DL (0.70-1.30); GLOMERULAR FILTRATION RATE 35.5 (>35); POTASSIUM SERUM 3.5 MMOL/L (3.5-5.1)
[2025-03-24 07:30] VITALS: BP 139/64; TEMP 98.5; O2SAT 94
[2025-03-24 12:27] VITALS: BP 140/62; TEMP 98.1; O2SAT 96
[2025-03-24 17:03] VITALS: BP 156/67; TEMP 98.3; O2SAT 97
[2025-03-24 19:15] VITALS: BP 154/95; TEMP 97.9; O2SAT 97
[2025-03-24 23:17] VITALS: BP 147/98; TEMP 97.5; O2SAT 95
[2025-03-25 03:14] VITALS: BP 121/61; TEMP 98.5; O2SAT 95
[2025-03-25 06:11] LABS: HEMATOCRIT 30.6 % (42.0-52.0); MEAN CORPUSCULAR HEMOGLOBIN 30.4 pg (27.0-33.0); MEAN CORPUSCULAR HGB CONC 32.7 g/dl (32.0-36.5); PLATELET COUNT, AUTOMATED 296 10^3/uL (150-450); RED BLOOD COUNT 3.29 10^6/uL (4.30-6.10); WHITE BLOOD COUNT 18.8 10^3/uL (4.0-10.0)
[2025-03-25 06:36] LABS: CALCIUM LEVEL 7.6 MG/DL (8.3-10.6); CREATININE FOR GFR 1.89 MG/DL (0.70-1.30); GLOMERULAR FILTRATION RATE 33.5 (>35); POTASSIUM SERUM 3.2 MMOL/L (3.5-5.1)
[2025-03-25 07:20] VITALS: BP 113/3; TEMP 98.3; O2SAT 92
[2025-03-25] MEDS ORDERED: KCL 20MEQ IN D5W 1000ML 1,000 ML IV SCH (09:00)
[2025-03-25] MEDS ORDERED: BISACODYL 10MG SUPP PR PRN (09:10)
[2025-03-25] MEDS: HEPARIN SOD 5000UNITS/ML 1ML VIAL/SYRINGE SQ SCH (09:17)
[2025-03-25] MEDS: LanTUS (INSULIN GLARGINE INJ) 1 UNITS/0.01 ML SC SCH (09:17)
[2025-03-25] MEDS ORDERED: ONDANSETRON 4MG ORAL DISINTEGRATING TAB PO PRN (10:30)
[2025-03-25] MEDS: BISACODYL 10MG SUPP PR SCH (10:38)
[2025-03-25] MEDS: MORPHINE 10MG/0.5ML ORAL CONCENTRATE SOLUTION U/D SL PRN (20:15)
[2025-03-27] MEDS: HYOSCYAMINE SULFATE 0.125 MG SUBL TABLET PO PRN (07:24)
[2025-03-27] MEDS: SCOPOLAMINE 1MG TRANSDERMAL PATCH TOP SCH (10:52)
[2025-03-27] MEDS: LORazepam 1 MG TAB PO PRN (23:35)
[2025-03-28] MEDS: ATROPINE SULFATE 1% OPHTH SOLN 2ML BTL SL PRN (18:33)
== END 2025-03-29 10:50 | disposition expired | DRG 177 ==
LOC: M ED 14:54 → EDBD 14:54 → M ED INP 17:13 → M MS5PR 03-22 09:45 → M PCU 03-22 20:20 → M MS5PR 03-25 14:22
PROVIDERS: ADMIT Internal Medicine Nephrology; ATTEND Internal Medicine
DX: J69.0 Pneumonitis due to inhalation of food and vomit (principal); G93.41 Metabolic encephalopathy; N17.9 Acute kidney failure, unspecified; F03.911 Unspecified dementia, unspecified severity, with agitation; E87.0 Hyperosmolality and hypernatremia; E87.3 Alkalosis; Z66 Do not resuscitate; R73.9 Hyperglycemia, unspecified; I12.9 Hypertensive chronic kidney disease with stage 1 through stage 4 chronic kidney disease, or unspecified chronic kidney disease; E78.5 Hyperlipidemia, unspecified; R57.0 Cardiogenic shock; E86.0 Dehydration; N18.9 Chronic kidney disease, unspecified; D64.9 Anemia, unspecified; R13.12 Dysphagia, oropharyngeal phase; Z90.49 Acquired absence of other specified parts of digestive tract; Z90.79 Acquired absence of other genital organ(s); Z85.828 Personal history of other malignant neoplasm of skin; Z79.899 Other long term (current) drug therapy